=== PATIENT | female | born 1935 | race Caucasian/White ===

== ENCOUNTER 2016-04-02 09:06 | Inpatient (IN) | payer MEDICARE, OTHER ==
[2016-04-02 09:13] VITALS: BMI 36.8
[2016-04-02 09:29] LABS: AUTOMATED BASOPHIL 0.6 % (0-2); AUTOMATED EOSINOPHIL 1.1 % (0-5); AUTOMATED LYMPH 22.3 % (17-44); AUTOMATED MONOCYTE 12.1 % (3-10); AUTOMATED NEUTROPHIL 63.9 % (45-76); MPV 9.7 fL (7.4-10.4)
--- NOTE | 2016-04-02 09:38 | EDPRACDOC ---
- General Information Chief Complaint: Generalized Weakness Stated Complaint: FALL Time Seen by Provider: 04/02/16 09:07 Information Source: Patient Home Medications: Home Medications Albuterol Sulfate [Ventolin Hfa] 1 - 2 puff INH Q4H PRN 09/06/12 Cholecalciferol [Vitamin D3 (cholecalciferol)] 1,000 unit PO DAILY 09/06/12 Duloxetine [Cymbalta] 30 mg PO DAILY 09/06/12 Esomeprazole Mag Trihydrate [Nexium] 40 mg PO BID 09/06/12 Ezetimibe [Zetia] 10 mg PO DAILY 09/06/12 Levothyroxine [Synthroid, Levoxyl] 175 mcg PO DAILY 09/06/12 Mometasone Furoate [Nasonex] 17 gm NS DAILY PRN 09/06/12 Telmisartan [Micardis] 80 mg PO DAILY 09/06/12 Calcium Carbonate [Calcium] 600 mg PO DAILY 09/15/14 Gabapentin [Neurontin] 400 mg PO BID 09/15/14 Hydrocodone Bit/Acetaminophen [[place] 5-325 Tablet] 1 - 2 tabs PO Q6H PRN Rosuvastatin [Crestor] 10 mg PO HS 09/15/14 Aspirin (Enteric Coated) [Halfprin] 81 mg PO DAILY 03/15/15 Clopidogrel Bisulfate [Plavix] 75 mg PO DAILY 03/15/15 Estradiol [Estrace] 2 gm PV .3 X PER WEEK 03/15/15 Fexofenadine HCl [Dionne] 180 mg PO DAILY 03/15/15 Furosemide [Lasix] 20 mg PO DAILY PRN 03/15/15 Glimepiride [Amaryl] 2 mg PO DAILY 03/15/15 Liraglutide [Victoza 18 mg/3 ml Pen] 1.8 mg SQ DAILY 03/15/15 Melatonin 10 mg PO QHS 03/15/15 Nitrofurantoin [Macrobid] 100 mg PO DAILY 04/02/16 Polyethylene Glycol 3350 [Miralax] 17 gm PO DAILY PRN 04/02/16 Allergies/Adverse Reactions: Allergies Allergy/AdvReac Type Severity Reaction Status Date / Time midazolam HCl [From Versed] Allergy Severe Confusion Verified 04/02/16 09:10 ethacrynic acid Allergy Mild Difficulty Verified 04/02/16 09:10 [From Edecrin] Breathing morphine Allergy Mild Unknown/See Verified 04/02/16 09:10 Comments Sulfa (Sulfonamide Allergy Mild Unknown/See Verified 04/02/16 09:10 Antibiotics) Comments [Sulfa(Sulfonamide Antibiotics)] adhesive tape Allergy Unknown/See Verified 04/02/16 09:10 Comments - History of Present Illness Onset: this am HPI: PT PRESENTS AFTER FALL CAUSED BY WEAKNESS IN HER LEGS WITH ATTEMPTED AMBULATION THIS AM. SHE REPORTS THAT SHE HIT THE RIGHT FOREHEAD WHEN SHE FELL. DENIES LOC. ED Past Medical History - Patient Medical History Neurological History: Reports: Cerebrovascular Accident Cardiac History: Reports: Hypertension, Hypercholesterolemia Respiratory History: Reports: Asthma GI/ History: Reports: Renal Disease, Urinary Tract Infection Musculoskeletal History: Reports: Osteoarthritis (lumbar) Psychological History: Reports: Anxiety. Denies: Depression Systemic History: Reports: Diabetes, Hyperthyroidism, Hypothyroidism. Denies: Cancer Surgical History: Reports: Hysterectomy (partial), Tonsillectomy/Adnoidectomy - Family Medical History Reports: Diabetes (father), Cancer (mother colon), Cardiac Disorders (parents). Denies: Hypertension, Stroke - Social Medical History Smoking Status: Former smoker Lives With: Alone Lives In: Home EDM Review of Systems - Review of Systems ROS Negative Except as Marked: Yes All systems reviewed and were negative except as marked Constitutional: Weakness. negative: Fever Respiratory: negative: Shortness of Breath Cardiovascular: negative: Chest Pain Gastrointestinal: negative: Nausea, Pain, Vomiting Genitourinary: negative: Dysuria Integumentary: Bruising (RIGHT FOREHEAD) - Physical Exam Constitutional: Alert Oriented to: Time, Person, Place Last recorded Vital Signs: Last Vital Signs Temp 98.3 F 04/02/16 09:11 Pulse 81 04/02/16 09:28 Resp 22 04/02/16 09:28 BP 229/95 H 04/02/16 09:28 Pulse Ox 91 04/02/16 09:28 Oxygen Pulse Oxygen Saturation 91 O2 Device Room Air Oxygen Flow Rate Fraction of Inspired Oxygen ( FIO2) - HEENT Head: Swelling (RIGHT FOREHEAD CONTUSION WITH SLIGHT ECCHYMOSIS.). negative: Deformity, Laceration Eye Exam: negative: Conjunctival Injection, Pale Conjunctiva Oropharynx: negative: Membranes Dry Nose: negative: Congestion, Discharge Neck: negative: Limited ROM - Respiratory/Cardiovascular Respiratory: Normal - CTA. negative: Accessory Muscle Use, Diminished, Tachypnea Cardiovascular: Tachycardia. negative: Bradycardia, Irregular - GI Auscultation: Normal Palpation: Normal Tenderness: Non tender - Musculoskeletal Extremities: Pedal Pulse (PALPABLE), Radial Pulse (PALPABLE). negative: Calf Tenderness, Pedal Edema - Integumentary Skin: Warm, Dry. negative: Rash - Neurologic Memory Impaired: Normal Motor Function: Normal Mood Description: Anxious, Appropriate Thought: Coherent Perception: Normal - Re-evaluation Re-evaluation 1 Re-evaluation Time: 12:57 PT HAS REPEATED QUESTIONS DURING HER VISIT, IS HAVING PERSISTENT HEADACHE, AND MAINTAINS LEG INSTABILITY. CONCERN FOR HYPERTENSIVE ENCEPHALOPATHY. - Results 04/02/16 09:15 04/02/16 09:15 WBC 7.1 xk/uL (3.8-10.8) 04/02/16 09:15 RBC 4.35 xM/uL (4.20-5.40) 04/02/16 09:15 Hgb 13.1 g/dL (12.0-16.0) 04/02/16 09:15 Hct 39.2 % (36-47) 04/02/16 09:15 MCV 90 fL (81-99) 04/02/16 09:15 MCH 30.1 pg (27-32) 04/02/16 09:15 MCHC 33.5 g/dl (33-36) 04/02/16 09:15 RDW 16.8 % (11.5-14.5) H 04/02/16 09:15 Plt Count 178 xk/uL (130-400) 04/02/16 09:15 MPV 9.7 fL (7.4-10.4) 04/02/16 09:15 Neut % (Auto) 63.9 % (45-76) 04/02/16 09:15 Lymph % (Auto) 22.3 % (17-44) 04/02/16 09:15 Wolfe % (Auto) 12.1 % (3-10) H 04/02/16 09:15 Eos % (Auto) 1.1 % (0-5) 04/02/16 09:15 Baso % (Auto) 0.6 % (0-2) 04/02/16 09:15 Absolute Neuts (auto) 4.47 xk/uL (1.7-8.2) 04/02/16 09:15 Absolute Lymphs (auto) 1.56 xk/uL (0.65-4.75) 04/02/16 09:15 Lab Results 04/02/16 09:15 WBC 7.1 RBC 4.35 Hgb 13.1 Hct 39.2 MCV 90 MCH 30.1 MCHC 33.5 RDW 16.8 H Plt Count 178 MPV 9.7 Neut % (Auto) 63.9 Lymph % (Auto) 22.3 Wolfe % (Auto) 12.1 H Eos % (Auto) 1.1 Baso % (Auto) 0.6 Absolute Neuts (auto) 4.47 Absolute Lymphs (auto) 1.56 - EKG EKG #1 EKG Time: 09:24 -: Yes EKG interpreted by me Rate: bpm: 84 [place]: LAD Rhythm: NSR, PVCs Block: IVCD ST: Nonsp - Departure Yes I personally saw and evaluated the patient. Disposition: Admit IP To This Hospital Condition: Stable Final Diagnosis: Hypertensive encephalopathy Instructions: Weakness (General) Decision to Admit Time: 13:02 Decision to admit date: 04/02/16 Decision to admit: from ED
[2016-04-02 09:39] LABS: BLOOD UREA NITROGEN 19 MG/DL (7-17); CALCIUM 9.4 MG/DL (8.4-10.2); CALCULATED OSMOLALITY 280 MOs/Kg (270-290); CHLORIDE 102 mEq/L (98-107); CPK TOTAL WITH POSSIBLE MB 42 IU/L (30-134); GLUCOSE 180 MG/DL (70-99); SODIUM LEVEL 142 mEq/L (137-146); TOTAL PROTEIN 7.6 G/DL (6.3-8.2)
[2016-04-02 09:41] LABS: PARTIAL THROMB. TIME 20.3 SEC (22-35); PT-INR 0.9
[2016-04-02 10:05] LABS: LEUKOCYTES/URINE NEG (NEGATIVE); NITRITE/URINE NEG (NEGATIVE); RBC/URINE 0-2 (0-5); URINE OCCULT BLOOD NEG (NEG/TRACE); WBC/URINE 0-2 (0-5)
--- NOTE | 2016-04-02 10:12 | DIRPT ---
CLINICAL DATA: Weakness EXAM: PORTABLE CHEST - 1 VIEW COMPARISON: 01/15/2015 FINDINGS: Cardiac shadow is stable. Lungs are clear bilaterally. No acute bony abnormality is seen. Chronic erosion of the distal right clavicle is noted. IMPRESSION: No active disease. Electronically Signed By: Rony Bob M.D. On: 04/02/2016 10:09
--- NOTE | 2016-04-02 10:51 | DIRPT ---
CLINICAL DATA: Recent fall with frontal head injury EXAM: CT HEAD WITHOUT CONTRAST TECHNIQUE: Contiguous axial images were obtained from the base of the skull through the vertex without intravenous contrast. COMPARISON: None. FINDINGS: Bony calvarium is intact. No findings to suggest acute hemorrhage, acute infarction or space-occupying mass lesion are noted. IMPRESSION: No acute intracranial abnormality noted. Electronically Signed By: Rony Bob M.D. On: 04/02/2016 10:49
[2016-04-02] MEDS ORDERED: LABETALOL 20 MG/4 ML SYRINGE IV ONE (11:02)
[2016-04-02] MEDS ORDERED: TELMISARTAN 40 MG TAB PO ONE (12:00)
[2016-04-02] MEDS ORDERED: hydrALAZINE 20 MG/ML VIAL IV ONE (12:56)
[2016-04-02] MEDS ORDERED: FUROSEMIDE 20 MG TAB PO PRN (13:13)
[2016-04-02] MEDS ORDERED: ALBUTEROL 6.7 GM MDI INH PRN (13:13)
[2016-04-02] MEDS ORDERED: MOMETASONE FUROATE 17 GM NS PRN (13:13)
[2016-04-02] MEDS ORDERED: PEG-ELECTROLYTE 17 GM PACK PO PRN (13:13)
[2016-04-02] MEDS ORDERED: ESTRADIOL PV SCH (13:15)
[2016-04-02] MEDS ORDERED: ONDANSETRON HCL 4 MG/2 ML VIAL IV PRN (13:19)
[2016-04-02] MEDS ORDERED: ACETAMINOPHEN 325 MG/TAB TABLET PO PRN (13:19)
[2016-04-02] MEDS ORDERED: GLUCAGON 1 MG VIAL SQ PRN (13:21)
[2016-04-02] MEDS ORDERED: DEXTROSE 25 GM/50 ML PFS IV PRN (13:21)
[2016-04-02] MEDS ORDERED: GLUCOSE (ORAL GEL) 15 GM TUBE PO PRN (13:21)
[2016-04-02] MEDS ORDERED: FLUTICASONE PROPIONATE 16 GM BOT NAS PRN (13:51)
[2016-04-02] MEDS ORDERED: FLUTICASONE PROPIONATE 16 GM BOT NAS SCH (13:52)
--- NOTE | 2016-04-02 13:58 | HISTPHYS ---
- Chief Complaint Hypertensive urgency - History of Present Illness This is a pleasant 80-year-old female with a history of hypertension and diabetes who was being admitted to the hospital today due to hypertensive urgency which was discovered after she had a mechanical fall at home this morning. The patient tells me that she normally ambulates with a walker, she lives independently in an elderly living community. This morning when she woke up, she sat at the edge of the bed, and when she went up to stand at the edge of the bed, she fell and hit her forehead on the night stand. She denies any dizziness, vertigo, nausea, vomiting, fevers, chills, syncope or loss of consciousness. She remembers the whole event, has never had seizures. She fell at home this last summer, in a similar situation. When her blood pressure was checked, was found to be in the 240s systolic. She has been given IV labetalol, as well as hydralazine here in the emergency department her blood pressure still elevated at over 220 systolic. She takes an ARB at home, she tells me that a few months ago her primary care physician discontinued her home amlodipine because her blood pressure was normal. She intermittently takes an oral antibiotic due to frequent urinary tract infections, for the last few days she has been urinating quite frequently and feels like she might have a urinary tract infection. - Medical History Cardiac History: Reports: Hypertension, Hypercholesterolemia Respiratory History: Reports: Asthma GI/ History: Reports: Renal Disease, Urinary Tract Infection Musculoskeletal History: Reports: Osteoarthritis (lumbar) Systemic History: Reports: Diabetes, Hyperthyroidism, Hypothyroidism. Denies: Cancer Neurological History: Reports: Cerebrovascular Accident Psychological History: Reports: Anxiety. Denies: Depression - Surgical History Reports: Hysterectomy (partial), Tonsillectomy/Adnoidectomy - Medictions/Allergies Allergies midazolam HCl [From Versed] Allergy (Severe, Verified 04/02/16 09:10) Confusion ethacrynic acid [From Edecrin] Allergy (Mild, Verified 04/02/16 09:10) Difficulty Breathing UNKNOWN morphine Allergy (Mild, Verified 04/02/16 09:10) Unknown/See Comments MOUTH SWELLING Sulfa (Sulfonamide Antibiotics) [Sulfa(Sulfonamide Antibiotics)] Allergy (Mild, Verified 04/02/16 09:10) Unknown/See Comments SOB adhesive tape Allergy (Verified 04/02/16 09:10) Unknown/See Comments SKIN IRRITATION Home Medications Albuterol Sulfate [Ventolin Hfa] 1 - 2 puff INH Q4H PRN 09/06/12 Cholecalciferol [Vitamin D3 (cholecalciferol)] 1,000 unit PO DAILY 09/06/12 Duloxetine [Cymbalta] 30 mg PO DAILY 09/06/12 Esomeprazole Mag Trihydrate [Nexium] 40 mg PO BID 09/06/12 Ezetimibe [Zetia] 10 mg PO DAILY 09/06/12 Levothyroxine [Synthroid, Levoxyl] 175 mcg PO DAILY 09/06/12 Mometasone Furoate [Nasonex] 17 gm NS DAILY PRN 09/06/12 Telmisartan [Micardis] 80 mg PO DAILY 09/06/12 Calcium Carbonate [Calcium] 600 mg PO DAILY 09/15/14 Gabapentin [Neurontin] 400 mg PO BID 09/15/14 Hydrocodone Bit/Acetaminophen [[place] 5-325 Tablet] 1 - 2 tabs PO Q6H PRN Rosuvastatin [Crestor] 10 mg PO HS 09/15/14 Aspirin (Enteric Coated) [Halfprin] 81 mg PO DAILY 03/15/15 Clopidogrel Bisulfate [Plavix] 75 mg PO DAILY 03/15/15 Estradiol [Estrace] 2 gm PV .3 X PER WEEK 03/15/15 Fexofenadine HCl [Dionne] 180 mg PO DAILY 03/15/15 Furosemide [Lasix] 20 mg PO DAILY PRN 03/15/15 Glimepiride [Amaryl] 2 mg PO DAILY 03/15/15 Liraglutide [Victoza 18 mg/3 ml Pen] 1.8 mg SQ DAILY 03/15/15 Melatonin 10 mg PO QHS 03/15/15 Nitrofurantoin [Macrobid] 100 mg PO DAILY 04/02/16 Polyethylene Glycol 3350 [Miralax] 17 gm PO DAILY PRN 04/02/16 - Family History Reports: Diabetes (father), Cancer (mother colon), Cardiac Disorders (parents). Denies: Hypertension, Stroke - Social History Smoking Status: Former smoker - Review of Systems Yes All systems reviewed and were negative except as marked (And as mentioned in the history of present illness above.) - Physical Exam Vital Signs: Initial Vitals Temperature 98.3 F 04/02/16 09:11 Pulse Rate 103 04/02/16 09:11 Respiratory Rate 18 04/02/16 09:11 Pulse Oxygen Saturation 93 04/02/16 09:11 Constitutional: Alert (Awake, Fully oriented, well appearing. No apparent distress) Oriented to: Time, Person, Place Exam: Elderly female appearing her stated age. She appears comfortable, is alert and oriented, and a good historian. - HEENT Head: Normal (normocephalic,atraumatic, trachea midline) Eye: Normal (EOMI, Sclera white) Oropharynx: Normal (moist) Nose: No Symptoms Reported (without discharge or bleeding) Respiratory: Normal - CTA (Clear to auscultation bilaterally, no wheezing,rales or rhonchi. No use of accessory muscles) Cardiovascular: Normal (RRR, no murmurs, rubs or gallops) - GI Palpation: Normal (soft, non distended and nontender) - Musculoskeletal Extremities: Normal (normal tone, no cyanosis or edema) - Integumentary Skin: Normal (no rashes or lesions) - Neurologic Cranial Nerve: Normal (CN II-XII intact) Mood Description: Normal (Fully oriented and appropiate affect) - Focused CV Perfusion Exam Vital Signs: Last Vital Signs Temp 98.3 F 04/02/16 09:11 Pulse 76 04/02/16 13:53 Resp 20 04/02/16 13:53 BP 218/88 H 04/02/16 13:53 Pulse Ox 93 04/02/16 13:53 - Lab Results Laboratory Tests 04/02/16 04/02/16 04/02/16 09:15 09:15 09:15 WBC 7.1 Hgb 13.1 INR 0.9 Potassium 3.9 BUN 19 H Creatinine 0.90 Lactic Acid AST 25 ALT 32 Troponin I [id number] Pept 04/02/16 04/02/16 04/02/16 09:15 10:15 12:10 WBC Hgb INR Potassium BUN Creatinine Lactic Acid 2.1 AST ALT Troponin I < 0.01 [id number] Pept 1250 - Diagnostic Findings Chest x-ray and head CT done in the emergency department this morning are both unremarkable, without any acute process identified. - Assessment (1) Hypertensive encephalopathy I67.4 - HYPERTENSIVE ENCEPHALOPATHY Acute Reason for admission. Uncontrolled hypertension likely related to recent medication change, fall/ injury, possible UTI. Mentation and mental status are currently normal. Note head CT results above, unremarkable for any acute stroke or hemorrhage. Resume home Arb, add amlodipine 10 mg p.o. daily, as well as IV hydralazine 10 mg q.6 p.r.n. SBP over 170. (2) HTN (hypertension) I10 - ESSENTIAL (PRIMARY) HYPERTENSION Acute Resuming home medications. See above. (3) DMII (diabetes mellitus, type 2) E11.9 - TYPE 2 DIABETES MELLITUS WITHOUT COMPLICATIONS Acute Diabetic diet, continue home oral diabetes medications. Add q.a.c. and HS blood sugar checks, as well as sliding scale insulin. Will also check hemoglobin A1c and urine microalbumin. (4) Fall at home W19.XXXA - UNSPECIFIED FALL, INITIAL ENCOUNTER; Y92.099 - UNSP PLACE IN OTH NON- INSTITUTIONAL RESIDENCE PLACE Acute Does not sound like syncope, or seizure. No stroke seen on head CT. Physical therapy has been consulted. Case Care Discussed with: Patient, Nursing Staff Total Time: 49
[2016-04-02] MEDS ORDERED: LIRAGLUTIDE 18 MG/3ML (0.6 MG/0.1 ML) PEN SQ SCH (14:00)
[2016-04-02] MEDS ORDERED: AMLODIPINE 5 MG TAB ONE (14:41)
[2016-04-02] MEDS ORDERED: RISPERIDONE 1 MG TAB ONE (14:42)
[2016-04-02] MEDS: AMLODIPINE 10 MG TAB PO SCH (14:56)
[2016-04-02] MEDS: HYDROCODONE 5 MG/ACETAMIN 325 MG TAB PO PRN ×2 (15:04→20:38)
[2016-04-02] MEDS: REGULAR INSULIN 100 UNITS/ML - 3 ML VIAL SQ SCH ×2 (18:38→21:23)
[2016-04-02] MEDS: ENOXAPARIN 60 MG/0.6 ML PFS SQ SCH (18:41)
[2016-04-02] MEDS: PANTOPRAZOLE 40 MG TAB PO SCH (18:42)
[2016-04-02] MEDS: hydrALAZINE 20 MG/ML VIAL IV PRN (18:42)
[2016-04-02] MEDS: LIRAGLUTIDE 18 MG/3ML (0.6 MG/0.1 ML) PEN SQ SCH (19:05)
[2016-04-02] MEDS ORDERED: Vaccine Screening Complete SCH (20:00)
[2016-04-02] MEDS ORDERED: MELATONIN 10 MG PO SCH (21:00)
[2016-04-02] MEDS ORDERED: Non-Formulary Medication ITEM (Esomeprazole Mag Trihydrate [Nexium] 40 MG) PO SCH (21:00)
[2016-04-02] MEDS: CARVEDILOL 3.125 MG TAB PO SCH (21:22)
[2016-04-02] MEDS: ROSUVASTATIN 10 MG TAB PO SCH (21:22)
[2016-04-02] MEDS: GABAPENTIN 400 MG CAP PO SCH (21:28)
[2016-04-02] MEDS ORDERED: CHAPSTICK LIP BALM ONE (21:33)
[2016-04-03] MEDS ORDERED: ARTIFICIAL TEARS OPH SOLN 15 ML OU PRN (00:04)
[2016-04-03] MEDS ORDERED: ARTIFICIAL TEARS OPH SOLN 15 ML OU SCH (00:12)
[2016-04-03] MEDS: TEMAZEPAM 15 MG CAP PO PRN ×2 (00:16→02:24)
[2016-04-03] MEDS: HYDROCODONE 5 MG/ACETAMIN 325 MG TAB PO PRN ×3 (02:20→21:04)
[2016-04-03 02:54] LABS: LEUKOCYTES/URINE NEG (NEGATIVE); NITRITE/URINE NEG (NEGATIVE); URINE OCCULT BLOOD NEG (NEG/TRACE)
[2016-04-03] MEDS: REGULAR INSULIN 100 UNITS/ML - 3 ML VIAL SQ SCH ×4 (05:59→20:56)
[2016-04-03] MEDS: PANTOPRAZOLE 40 MG TAB PO SCH ×2 (06:21→19:00)
[2016-04-03] MEDS: GLIMEPIRIDE 2 MG TAB PO SCH (06:21)
[2016-04-03 06:44] LABS: MPV 10.3 fL (7.4-10.4)
[2016-04-03 07:00] LABS: BLOOD UREA NITROGEN 14 MG/DL (7-17); CALCIUM 9.2 MG/DL (8.4-10.2); CALCULATED OSMOLALITY 275 MOs/Kg (270-290); CHLORIDE 103 mEq/L (98-107); GLUCOSE 148 MG/DL (70-99); SODIUM LEVEL 141 mEq/L (137-146)
[2016-04-03] MEDS ORDERED: LIRAGLUTIDE 18 MG/3ML (0.6 MG/0.1 ML) PEN SQ SCH (07:00)
[2016-04-03] MEDS ORDERED: LEVOTHYROXINE 175 MCG PO SCH (09:00)
[2016-04-03] MEDS ORDERED: TELMISARTAN 80 MG PO SCH (09:00)
--- NOTE | 2016-04-03 09:57 | GENMEDPROG ---
Chief Complaint: Hypertension, fall at home Subjective Note: No acute events overnight, the patient is comfortable but tells me that she had some urinary retention and frequent overflow incontinence overnight. This has been a problem for her in the past. Notes Reviewed: Yes Events from last night noted and discussed with Clinical Staff Current Medication List: Reviewed DVT Prophylaxis: Yes - Physical Examination Vital Signs and I&O: Last Vital Signs Temp 98.1 F 04/03/16 08:12 Pulse 87 04/03/16 08:12 Resp 20 04/03/16 08:12 BP 182/78 H 04/03/16 08:12 Pulse Ox 93 04/03/16 08:12 Oxygen Pulse Oxygen Saturation 93 O2 Device Room Air Oxygen Flow Rate Fraction of Inspired Oxygen ( FIO2) Intake & Output 04/01/16 04/02/16 04/03/16 04/04/16 06:59 06:59 06:59 06:59 Intake Total 360 Output Total 1300 Balance -940 General: Alert, Oriented x3, Cooperative, Mild distress Neck: Normal Trachea alignment, Normal inspection Respiratory: Normal - CTA (Clear to auscultation bilaterally, no wheezing,rales or rhonchi. No use of accessory muscles) Cardiovascular: Regular rate, No Gallops,Rubs/Murmurs GI: Normal bowel sounds, Soft, Non tender (non distended) Extremities/Musculoskeletal: Other (Normal Tone). negative: Edema, Cyanosis Skin: No rashes, No significant lesion Lab/DI/Studies Reviewed: Laboratory Tests 04/03/16 04/03/16 05:50 05:50 WBC 8.8 Hgb 12.5 Potassium 3.9 BUN 14 Creatinine 0.80 - Assessment (1) Hypertensive encephalopathy Acute I67.4 - HYPERTENSIVE ENCEPHALOPATHY Comment/Plan: Reason for admission. Uncontrolled hypertension likely related to recent medication change , fall/injury, possible UTI. Mentation and mental status are currently normal. Note head CT unremarkable for any acute stroke or hemorrhage. Resume home Arb, add amlodipine 10 mg p.o. daily, as well as IV hydralazine 10 mg q.6 p.r.n. SBP over 170. Blood pressure is improved today, slightly elevated this morning, but she has not received her amlodipine yet. (2) HTN (hypertension) Acute I10 - ESSENTIAL (PRIMARY) HYPERTENSION Comment/Plan: Resuming home medications. See above. (3) DMII (diabetes mellitus, type 2) Acute E11.9 - TYPE 2 DIABETES MELLITUS WITHOUT COMPLICATIONS Comment/Plan: Diabetic diet, continue home oral diabetes medications. Add q.a.c. and HS blood sugar checks, as well as sliding scale insulin. Will also check hemoglobin A1c and urine microalbumin. (4) Fall at home Acute W19.XXXA - UNSPECIFIED FALL, INITIAL ENCOUNTER; Y92.099 - UNSP PLACE IN OTH NON-INSTITUTIONAL RESIDENCE PLACE Comment/Plan: Does not sound like syncope, or seizure. No stroke seen on head CT. Physical therapy has been consulted and recommend subacute rehabilitation.
[2016-04-03] MEDS: NITROFURANTOIN 100 MG CAP PO SCH (10:10)
[2016-04-03] MEDS: DULOXETINE 30 MG CAP PO SCH (10:11)
[2016-04-03] MEDS: CARVEDILOL 3.125 MG TAB PO SCH ×2 (10:11→20:55)
[2016-04-03] MEDS: TELMISARTAN 40 MG TAB PO SCH (10:13)
[2016-04-03] MEDS: GABAPENTIN 400 MG CAP PO SCH ×2 (10:13→20:56)
[2016-04-03] MEDS: EZETIMIBE 10 MG TAB PO SCH (10:14)
[2016-04-03] MEDS: AMLODIPINE 10 MG TAB PO SCH (10:14)
[2016-04-03] MEDS: CLOPIDOGREL 75 MG TAB PO SCH (10:14)
[2016-04-03] MEDS: LEVOTHYROXINE 100 MCG, LEVOTHYROXINE 75 MCG PO SCH ×2 (10:14)
[2016-04-03] MEDS: FEXOFENADINE HCL 180 MG TAB PO SCH (10:17)
[2016-04-03] MEDS: hydrALAZINE 20 MG/ML VIAL IV PRN (11:21)
[2016-04-03] MEDS ORDERED: HYDROCODONE 5 MG/ACETAMIN 325 MG TAB PO ONE (12:20)
[2016-04-03] MEDS: ARTIFICIAL TEARS OPH SOLN 15 ML OU SCH ×2 (12:28→20:54)
[2016-04-03] MEDS: CALCIUM CARBONATE 500 MG TAB PO SCH (12:29)
[2016-04-03] MEDS: CHOLECALCIFEROL 1000 UNITS TAB PO SCH (12:29)
[2016-04-03] MEDS: ENOXAPARIN 60 MG/0.6 ML PFS SQ SCH (18:59)
[2016-04-03] MEDS: LIRAGLUTIDE 18 MG/3ML (0.6 MG/0.1 ML) PEN SQ SCH (18:59)
[2016-04-03] MEDS: ROSUVASTATIN 10 MG TAB PO SCH (20:55)
[2016-04-04] MEDS: TEMAZEPAM 15 MG CAP PO PRN ×2 (00:03→21:13)
[2016-04-04 03:23] LABS: MPV 10.2 fL (7.4-10.4)
[2016-04-04 03:31] LABS: BLOOD UREA NITROGEN 18 MG/DL (7-17); CALCIUM 9.2 MG/DL (8.4-10.2); CALCULATED OSMOLALITY 268 MOs/Kg (270-290); CHLORIDE 100 mEq/L (98-107); GLUCOSE 141 MG/DL (70-99); SODIUM LEVEL 137 mEq/L (137-146)
[2016-04-04] MEDS: REGULAR INSULIN 100 UNITS/ML - 3 ML VIAL SQ SCH ×4 (05:16→21:14)
[2016-04-04] MEDS: PANTOPRAZOLE 40 MG TAB PO SCH ×2 (05:16→16:41)
[2016-04-04] MEDS: CHOLECALCIFEROL 1000 UNITS TAB PO SCH (08:51)
[2016-04-04] MEDS: GABAPENTIN 400 MG CAP PO SCH ×2 (08:51→21:14)
[2016-04-04] MEDS: CLOPIDOGREL 75 MG TAB PO SCH (08:51)
[2016-04-04] MEDS: CALCIUM CARBONATE 500 MG TAB PO SCH (08:51)
[2016-04-04] MEDS: EZETIMIBE 10 MG TAB PO SCH (08:51)
[2016-04-04] MEDS: TELMISARTAN 40 MG TAB PO SCH (08:52)
[2016-04-04] MEDS: AMLODIPINE 10 MG TAB PO SCH (08:52)
[2016-04-04] MEDS: LEVOTHYROXINE 100 MCG, LEVOTHYROXINE 75 MCG PO SCH ×2 (08:52)
[2016-04-04] MEDS: GLIMEPIRIDE 2 MG TAB PO SCH (08:53)
[2016-04-04] MEDS: CARVEDILOL 3.125 MG TAB PO SCH ×2 (08:53→21:14)
[2016-04-04] MEDS: NITROFURANTOIN 100 MG CAP PO SCH (08:53)
[2016-04-04] MEDS: DULOXETINE 30 MG CAP PO SCH (08:53)
[2016-04-04] MEDS: ARTIFICIAL TEARS OPH SOLN 15 ML OU SCH ×2 (08:53→21:13)
[2016-04-04] MEDS: FEXOFENADINE HCL 180 MG TAB PO SCH (08:53)
[2016-04-04] MEDS: HYDROCODONE 5 MG/ACETAMIN 325 MG TAB PO PRN ×2 (09:00→21:13)
--- NOTE | 2016-04-04 09:16 | GENMEDPROG ---
Chief Complaint: HTN, NELLY Currently: Reports: Abdominal Pain DVT Prophylaxis: Yes - Physical Examination Vital Signs and I&O: Last Vital Signs Temp 97.6 F 04/04/16 08:54 Pulse 73 04/04/16 08:54 Resp 20 04/04/16 08:54 BP 141/64 04/04/16 08:54 Pulse Ox 96 04/04/16 08:54 Oxygen Pulse Oxygen Saturation 96 O2 Device Room Air Oxygen Flow Rate Fraction of Inspired Oxygen ( FIO2) Intake & Output 04/01/16 04/02/16 04/03/16 04/04/16 23:59 23:59 23:59 23:59 Intake Total 360 1200 854 Output Total 300 1000 Balance 60 200 854 General: Alert, Oriented x3, Cooperative, Mild distress HEENT: PERRLA, EOMI, Anicteric Sclera Neck: Normal Trachea alignment, Normal inspection Lymphatics: Normal Respiratory: Normal - CTA (Clear to auscultation bilaterally, no wheezing,rales or rhonchi. No use of accessory muscles) Cardiovascular: Regular rate, No Gallops,Rubs/Murmurs GI: Normal bowel sounds, Soft, No masses, Tenderness (non distended, LLQ pain) Extremities/Musculoskeletal: FROM, Other (Normal Tone). negative: Edema, Cyanosis Skin: No rashes, No significant lesion Neurological: Normal speech, Strength at 5/5 X4 ext, Normal tone, Cranial nerves 3-12 NL Psych/Mental Status: Appropriate, Normal Affect, Cooperative Lab/DI/Studies Reviewed: Laboratory Tests 04/04/16 04/04/16 04/04/16 03:02 03:02 05:16 WBC 7.3 Hgb 12.4 Hct 36.7 Plt Count 177 Sodium 137 Potassium 4.4 Chloride 100 Carbon Dioxide 29 Anion Gap 12 BUN 18 H Creatinine 0.90 Estimated GFR (MDRD) > 60 Glucose 141 H POC Capillary Glucose 135 H Calculated Osmolality 268 L Calcium 9.2 04/04/16 04/04/16 04/04/16 11:43 16:50 20:51 WBC Hgb Hct Plt Count Sodium Potassium Chloride Carbon Dioxide Anion Gap BUN Creatinine Estimated GFR (MDRD) Glucose POC Capillary Glucose 147 H 142 H 209 H Calculated Osmolality Calcium - Assessment (1) Hypertensive encephalopathy Resolved I67.4 - HYPERTENSIVE ENCEPHALOPATHY Comment/Plan: Reason for admission. Uncontrolled hypertension likely related to recent medication change , fall/injury, but UTI has been ruled out. Mentation and mental status are currently normal. Note head CT unremarkable for any acute stroke or hemorrhage. Resume home ARB, add amlodipine 10 mg p.o. daily, as well as IV hydralazine 10 mg q.6 p.r.n. SBP over 170. Blood pressure is improved . (2) Fall at home Acute W19.XXXA - UNSPECIFIED FALL, INITIAL ENCOUNTER; Y92.099 - UNSP PLACE IN OTH NON-INSTITUTIONAL RESIDENCE PLACE Qualifiers: Encounter type: initial encounter Qualified Code(s): W19.XXXA - Unspecified fall, initial encounter; Y92.099 - Unspecified place in other non- institutional residence as the place of occurrence of the external cause Comment/Plan: Does not sound like syncope, or seizure. No stroke seen on head CT. Physical therapy has been consulted and recommends subacute rehabilitation. Patient would [facility] to go to [facility]. (3) HTN (hypertension) Acute I10 - ESSENTIAL (PRIMARY) HYPERTENSION Comment/Plan: Resuming home medications. See above. (4) DMII (diabetes mellitus, type 2) Acute E11.9 - TYPE 2 DIABETES MELLITUS WITHOUT COMPLICATIONS Qualifiers: Diabetes mellitus complication status: with neurologic complications Diabetes mellitus complication detail: with polyneuropathy Diabetes mellitus moth exterminator insulin use: without moth exterminator use Qualified Code(s): E11.42 - Type 2 diabetes mellitus with diabetic polyneuropathy Comment/Plan: Diabetic diet, continue home oral diabetes medications. Add q.a.c. and HS blood sugar checks, as well as sliding scale insulin. Hg A1c= 8.5 and urine microalbumin=29.3. (5) Abdominal pain, LLQ Acute R10.32 - LEFT LOWER QUADRANT PAIN Comment/Plan: Nonspecific. She did have some urinary retention. No evidence of UTI at this time.
[2016-04-04] MEDS: ENOXAPARIN 60 MG/0.6 ML PFS SQ SCH (16:41)
[2016-04-04] MEDS: LIRAGLUTIDE 18 MG/3ML (0.6 MG/0.1 ML) PEN SQ SCH (16:51)
[2016-04-04] MEDS: ROSUVASTATIN 10 MG TAB PO SCH (21:14)
[2016-04-05] MEDS: HYDROCODONE 5 MG/ACETAMIN 325 MG TAB PO PRN (02:51)
[2016-04-05 04:10] LABS: MPV 10.2 fL (7.4-10.4)
[2016-04-05 04:21] LABS: BLOOD UREA NITROGEN 24 MG/DL (7-17); CALCIUM 8.9 MG/DL (8.4-10.2); CALCULATED OSMOLALITY 265 MOs/Kg (270-290); CHLORIDE 98 mEq/L (98-107); GLUCOSE 191 MG/DL (70-99); SODIUM LEVEL 133 mEq/L (137-146)
[2016-04-05] MEDS: GLIMEPIRIDE 2 MG TAB PO SCH (06:33)
[2016-04-05] MEDS: REGULAR INSULIN 100 UNITS/ML - 3 ML VIAL SQ SCH ×4 (06:33→21:56)
[2016-04-05] MEDS: PANTOPRAZOLE 40 MG TAB PO SCH ×2 (06:33→17:25)
[2016-04-05] MEDS: CALCIUM CARBONATE 500 MG TAB PO SCH (08:47)
[2016-04-05] MEDS: LEVOTHYROXINE 100 MCG, LEVOTHYROXINE 75 MCG PO SCH ×2 (08:47)
[2016-04-05] MEDS: CHOLECALCIFEROL 1000 UNITS TAB PO SCH (08:47)
[2016-04-05] MEDS: AMLODIPINE 10 MG TAB PO SCH (08:48)
[2016-04-05] MEDS: NITROFURANTOIN 100 MG CAP PO SCH (08:48)
[2016-04-05] MEDS: TELMISARTAN 40 MG TAB PO SCH (08:48)
[2016-04-05] MEDS: ARTIFICIAL TEARS OPH SOLN 15 ML OU SCH ×2 (08:48→21:48)
[2016-04-05] MEDS: CLOPIDOGREL 75 MG TAB PO SCH (08:48)
[2016-04-05] MEDS: DULOXETINE 30 MG CAP PO SCH (08:48)
[2016-04-05] MEDS: EZETIMIBE 10 MG TAB PO SCH (08:48)
[2016-04-05] MEDS: CARVEDILOL 3.125 MG TAB PO SCH ×2 (08:48→21:46)
[2016-04-05] MEDS: GABAPENTIN 400 MG CAP PO SCH ×2 (08:48→21:46)
[2016-04-05] MEDS: FEXOFENADINE HCL 180 MG TAB PO SCH (08:48)
--- NOTE | 2016-04-05 11:29 | GENMEDPROG ---
Currently: Reports: Abdominal Pain DVT Prophylaxis: Yes - Physical Examination Vital Signs and I&O: Last Vital Signs Temp 97.9 F 04/05/16 08:18 Pulse 88 04/05/16 08:18 Resp 18 04/05/16 08:18 BP 131/62 04/05/16 08:18 Pulse Ox 95 04/05/16 08:18 Oxygen Pulse Oxygen Saturation 95 O2 Device Room Air Oxygen Flow Rate Fraction of Inspired Oxygen ( FIO2) Intake & Output 04/02/16 04/03/16 04/04/16 04/05/16 23:59 23:59 23:59 23:59 Intake Total 360 1200 1334 360 Output Total 300 1000 Balance 60 200 1334 360 Patient's weight 122.833 kg General: Alert, Oriented x3, Cooperative, Mild distress HEENT: PERRLA, EOMI, Anicteric Sclera Neck: Normal Trachea alignment, Normal inspection Lymphatics: Normal Respiratory: Normal - CTA (Clear to auscultation bilaterally, no wheezing,rales or rhonchi. No use of accessory muscles) Cardiovascular: Regular rate, No Gallops,Rubs/Murmurs GI: Normal bowel sounds, Soft, No masses, Tenderness (non distended, LLQ pain) Extremities/Musculoskeletal: FROM, Other (Normal Tone). negative: Edema, Cyanosis Skin: No rashes, No significant lesion Neurological: Normal speech, Strength at 5/5 X4 ext, Normal tone, Cranial nerves 3-12 NL Psych/Mental Status: Appropriate, Normal Affect, Cooperative Lab/DI/Studies Reviewed: Laboratory Tests 04/05/16 04/05/16 04/05/16 03:55 03:55 05:51 WBC 7.9 Hgb 11.9 L Hct 35.6 L Plt Count 175 Sodium 133 L Potassium 4.5 Chloride 98 Carbon Dioxide 26 Anion Gap 14 BUN 24 H Creatinine 1.00 Estimated GFR (MDRD) 53 L Glucose 191 H POC Capillary Glucose 168 H Calculated Osmolality 265 L Calcium 8.9 - Assessment (1) HTN (hypertension) Acute I10 - ESSENTIAL (PRIMARY) HYPERTENSION Comment/Plan: Resuming home medications. See above. (2) Fall at home Acute W19.XXXA - UNSPECIFIED FALL, INITIAL ENCOUNTER; Y92.099 - UNSP PLACE IN OTH NON-INSTITUTIONAL RESIDENCE PLACE Qualifiers: Encounter type: initial encounter Qualified Code(s): W19.XXXA - Unspecified fall, initial encounter; Y92.099 - Unspecified place in other non- institutional residence as the place of occurrence of the external cause Comment/Plan: Does not sound like syncope, or seizure. No stroke seen on head CT. Physical therapy has been consulted and recommends subacute rehabilitation. Patient would like to go to [facility]. (3) DMII (diabetes mellitus, type 2) Acute E11.9 - TYPE 2 DIABETES MELLITUS WITHOUT COMPLICATIONS Qualifiers: Diabetes mellitus complication status: with neurologic complications Diabetes mellitus complication detail: with polyneuropathy Diabetes mellitus equipment operator intermodal yard insulin use: without intermediate use Qualified Code(s): E11.42 - Type 2 diabetes mellitus with diabetic polyneuropathy Comment/Plan: Diabetic diet, continue home oral diabetes medications. Add q.a.c. and HS blood sugar checks, as well as sliding scale insulin. Hg A1c= 8.5 and urine microalbumin=29.3. (4) Abdominal pain, LLQ Acute R10.32 - LEFT LOWER QUADRANT PAIN Comment/Plan: Nonspecific. Better today. She did have some urinary retention, but is voiding better now. No evidence of UTI at this time. (5) Hypertensive encephalopathy Resolved I67.4 - HYPERTENSIVE ENCEPHALOPATHY Comment/Plan: Reason for admission. Uncontrolled hypertension likely related to recent medication change , fall/injury, but UTI has been ruled out. Mentation and mental status are currently normal. Note head CT unremarkable for any acute stroke or hemorrhage. Resume home ARB, add amlodipine 10 mg p.o. daily, as well as IV hydralazine 10 mg q.6 p.r.n. SBP over 170. Blood pressure is improved .
[2016-04-05] MEDS: LIRAGLUTIDE 18 MG/3ML (0.6 MG/0.1 ML) PEN SQ SCH (17:22)
[2016-04-05] MEDS: ENOXAPARIN 60 MG/0.6 ML PFS SQ SCH (17:25)
[2016-04-05] MEDS: ROSUVASTATIN 10 MG TAB PO SCH (21:45)
[2016-04-05] MEDS: TEMAZEPAM 15 MG CAP PO PRN (21:55)
[2016-04-06] MEDS: HYDROCODONE 5 MG/ACETAMIN 325 MG TAB PO PRN (00:43)
[2016-04-06] MEDS: GLIMEPIRIDE 2 MG TAB PO SCH (06:51)
[2016-04-06] MEDS: PANTOPRAZOLE 40 MG TAB PO SCH (06:51)
[2016-04-06] MEDS: REGULAR INSULIN 100 UNITS/ML - 3 ML VIAL SQ SCH ×2 (06:52→11:58)
[2016-04-06 07:22] LABS: MPV 10.1 fL (7.4-10.4)
[2016-04-06 07:45] LABS: BLOOD UREA NITROGEN 21 MG/DL (7-17); CALCIUM 8.9 MG/DL (8.4-10.2); CALCULATED OSMOLALITY 264 MOs/Kg (270-290); CHLORIDE 100 mEq/L (98-107); GLUCOSE 152 MG/DL (70-99); SODIUM LEVEL 134 mEq/L (137-146)
[2016-04-06] MEDS: CALCIUM CARBONATE 500 MG TAB PO SCH (08:40)
[2016-04-06] MEDS: GABAPENTIN 400 MG CAP PO SCH (08:41)
[2016-04-06] MEDS: DULOXETINE 30 MG CAP PO SCH (08:41)
[2016-04-06] MEDS: TELMISARTAN 40 MG TAB PO SCH (08:41)
[2016-04-06] MEDS: CHOLECALCIFEROL 1000 UNITS TAB PO SCH (08:41)
[2016-04-06] MEDS: CARVEDILOL 3.125 MG TAB PO SCH (08:41)
[2016-04-06] MEDS: LEVOTHYROXINE 100 MCG, LEVOTHYROXINE 75 MCG PO SCH ×2 (08:41)
[2016-04-06] MEDS: AMLODIPINE 10 MG TAB PO SCH (08:41)
[2016-04-06] MEDS: NITROFURANTOIN 100 MG CAP PO SCH (08:41)
[2016-04-06] MEDS: EZETIMIBE 10 MG TAB PO SCH (08:41)
[2016-04-06] MEDS: FEXOFENADINE HCL 180 MG TAB PO SCH (08:41)
[2016-04-06] MEDS: CLOPIDOGREL 75 MG TAB PO SCH (08:42)
[2016-04-06] MEDS: ARTIFICIAL TEARS OPH SOLN 15 ML OU SCH (08:42)
[2016-04-06 09:54] VITALS: PULSE 74
--- NOTE | 2016-04-06 12:18 | PCM.DCS92 ---
- Final/Secondary Discharge Diagnosis (1) Hypertensive encephalopathy Resolved I67.4 - HYPERTENSIVE ENCEPHALOPATHY Present on Admission: Yes Comment: Reason for admission. Uncontrolled hypertension likely related to recent medication change, fall/injury, but UTI has been ruled out. Mentation and mental status are currently normal. Note head CT unremarkable for any acute stroke or hemorrhage. Resume home ARB, add amlodipine 10 mg p.o. daily, as well as IV hydralazine 10 mg q.6 p.r.n. SBP over 170. Blood pressure is improved . (2) HTN (hypertension) Acute I10 - ESSENTIAL (PRIMARY) HYPERTENSION Present on Admission: Yes essential hypertension I10 - Essential (primary) hypertension Comment: Resuming home medications. See above. (3) Fall at home Acute W19.XXXA - UNSPECIFIED FALL, INITIAL ENCOUNTER; Y92.099 - UNSP PLACE IN OTH NON-INSTITUTIONAL RESIDENCE PLACE Present on Admission: Yes initial encounter W19.XXXA - Unspecified fall, initial encounter; Y92.099 - Unspecified place in other non-institutional residence as the place of occurrence of the external cause Comment: Does not sound like syncope, or seizure. No stroke seen on head CT. Physical therapy has been consulted and recommends subacute rehabilitation. Patient would like to go to [facility]'s SNF. (4) DMII (diabetes mellitus, type 2) Acute E11.9 - TYPE 2 DIABETES MELLITUS WITHOUT COMPLICATIONS Present on Admission: Yes with neurologic complications with polyneuropathy without termination clerk use E11.42 - Type 2 diabetes mellitus with diabetic polyneuropathy Comment: Diabetic diet, continue home oral diabetes medications. Add q.a.c. and HS blood sugar checks, as well as sliding scale insulin. Hg A1c= 8.5 and urine microalbumin=29.3. (5) Abdominal pain, LLQ Acute R10.32 - LEFT LOWER QUADRANT PAIN Present on Admission: Yes Comment: Nonspecific. Better today. She did have some urinary retention, but is voiding better now. No evidence of UTI at this time. Discharge Disposition: Long-Term Facility Discharge Condition: Improved Cognitive Discharge Status: Unimpaired Fuctional Discharge Status: Independent Physician Follow up/Referrals: Luis Alberto Villa MD [Primary Care Provider] - One Week New Prescriptions: Amlodipine [Norvasc] 10 mg PO DAILY #30 tab Carvedilol [Coreg] 3.125 mg PO BID #60 tablet Discharge Home Medication List Albuterol Sulfate [Ventolin Hfa] 1 - 2 puff INH Q4H PRN 09/06/12 [History Confirmed 04/02/16 Last Taken 04/01/16] Cholecalciferol [Vitamin D3 (cholecalciferol)] 1,000 unit PO DAILY 09/06/12 [ History Confirmed 04/02/16 Last Taken 04/01/16] Duloxetine [Cymbalta] 30 mg PO DAILY 09/06/12 [History Confirmed 04/02/16 Last Taken 04/01/16] Esomeprazole Mag Trihydrate [Nexium] 40 mg PO BID 09/06/12 [History Confirmed Last Taken 04/01/16] Ezetimibe [Zetia] 10 mg PO DAILY 09/06/12 [History Confirmed 04/02/16 Last Taken 04/01/16] Levothyroxine [Synthroid, Levoxyl] 175 mcg PO DAILY 09/06/12 [History Confirmed 04/02/16 Last Taken 04/01/16] Mometasone Furoate [Nasonex] 17 gm NS DAILY PRN 09/06/12 [History Confirmed Last Taken 09/14/14] Telmisartan [Micardis] 80 mg PO DAILY 09/06/12 [History Confirmed 04/02/16 Last Taken 04/01/16] Calcium Carbonate [Calcium] 600 mg PO DAILY 09/15/14 [History Confirmed Last Taken 04/01/16] Gabapentin [Neurontin] 400 mg PO BID 09/15/14 [History Confirmed 04/02/16 Last Taken 04/01/16] Hydrocodone Bit/Acetaminophen [[place] 5-325 Tablet] 1 - 2 tabs PO Q6H PRN [History Confirmed 04/02/16 Last Taken 03/15/15] Rosuvastatin [Crestor] 10 mg PO HS 09/15/14 [History Confirmed 04/02/16 Last Taken 04/01/16] Aspirin (Enteric Coated) [Halfprin] 81 mg PO DAILY 03/15/15 [History Confirmed 04/02/16 Last Taken 04/01/16] Clopidogrel Bisulfate [Plavix] 75 mg PO DAILY 03/15/15 [History Confirmed Last Taken 04/01/16] Estradiol [Estrace] 2 gm PV .3 X PER WEEK 03/15/15 [History Confirmed 04/02/16 Last Taken Unknown] Fexofenadine HCl [Dionne] 180 mg PO DAILY 03/15/15 [History Confirmed 04/02/16 Last Taken 04/01/16] Furosemide [Lasix] 20 mg PO DAILY PRN 03/15/15 [History Confirmed 04/02/16 Last Taken 03/14/15] Glimepiride [Amaryl] 2 mg PO DAILY 03/15/15 [History Confirmed 04/02/16 Last Taken 04/01/16] Liraglutide [Victoza 18 mg/3 ml Pen] 1.8 mg SQ DAILY 03/15/15 [History Confirmed 04/02/16 Last Taken 04/01/16] Nitrofurantoin [Macrobid] 100 mg PO DAILY 04/02/16 [History Confirmed 04/02/16 Last Taken 04/01/16] Polyethylene Glycol 3350 [Miralax] 17 gm PO DAILY PRN 04/02/16 [History Confirmed 04/02/16 Last Taken 04/01/16] Amlodipine [Norvasc] 10 mg PO DAILY #30 tab 04/06/16 [Rx Last Taken Unknown] Artificial Tears 2 drops OU BID #1 bottle 04/06/16 [Rx Last Taken Unknown] Artificial Tears 2 drops OU Q4H PRN #1 bottle 04/06/16 [Rx Last Taken Unknown] Carvedilol [Coreg] 3.125 mg PO BID #60 tablet 04/06/16 [Rx Last Taken Unknown] O2 Device: Room Air Oxygen to be used after Discharge: Continuous Diet at Discharge: As Tolerated Activity: No Restrictions Call Office For: Worsening Symptoms Discontinue use of:: Alcohol, All Types of Tobacco - DC Summary Notes Hospital Course Note:: Discharge summary on patient named RADHA VELASCO admitted to [facility] on 04/02/16 by Solo Denton MD. Date of discharge is []. This is a pleasant 80-year-old female with a history of hypertension and diabetes who was being admitted to the hospital today due to hypertensive urgency which was discovered after she had a mechanical fall at home this morning. The patient tells me that she normally ambulates with a walker, she lives independently in an elderly living community. This morning when she woke up, she sat at the edge of the bed, and when she went up to stand at the edge of the bed, she fell and hit her forehead on the night stand. She denies any dizziness, vertigo, nausea, vomiting, fevers, chills, syncope or loss of consciousness. She remembers the whole event, has never had seizures. She fell at home this last summer, in a similar situation. When her blood pressure was checked, was found to be in the 240s systolic. She has been given IV labetalol, as well as hydralazine here in the emergency department her blood pressure still elevated at over 220 systolic. She takes an ARB at home, she tells me that a few months ago her primary care physician discontinued her home amlodipine because her blood pressure was normal. She intermittently takes an oral antibiotic due to frequent urinary tract infections, for the last few days she has been urinating quite frequently and feels like she might have a urinary tract infection. She was evaluated for a stroke, but had a normal CT of the head. Her uncontrolled hypertension is likely related to recent medication change, fall/ injury, but UTI has been ruled out. Mentation and mental status are currently normal. She was thought to have a hypertensive encephalopathy, there was no evidence of an acute infection. Blood and urine cultures were negative. No stroke seen on head CT. Physical therapy has been consulted and recommends subacute rehabilitation. Patient would like to go to [facility]'s SNF. She will be discharged today. Total Time: 35 min Code: 80327 (>30min.) - Physical Exam Vital Signs: Last Vital Signs Temp 98.0 F 04/06/16 09:54 Pulse 74 04/06/16 09:54 Resp 18 04/06/16 09:54 BP 173/73 04/06/16 09:54 Pulse Ox 93 04/06/16 09:54 Oxygen Pulse Oxygen Saturation 93 O2 Device Room Air Oxygen Flow Rate Fraction of Inspired Oxygen ( FIO2) Constitutional: Alert (Awake, Fully oriented, well appearing. No apparent distress) Oriented to: Time, Person, Place - HEENT Head: Normal (normocephalic,atraumatic, trachea midline) Eye: Normal (EOMI, Sclera white) Oropharynx: Normal (moist) Tympanic Membrane: Dull ENT EAC: Normal Nose: No Symptoms Reported (without discharge or bleeding) - Respiratory/Cardiovascular Respiratory: Normal - CTA (Clear to auscultation bilaterally, no wheezing,rales or rhonchi. No use of accessory muscles) Cardiovascular: Normal - GI Palpation: Normal (soft, non distended and nontender) Tenderness: Non tender Rodriguez's Sign: Negative Rectal Exam: Deferred - Musculoskeletal Back: Normal Extremities: Normal (normal tone, no cyanosis or edema) - Integumentary Skin: Warm, Dry Lymphatics: Normal - Neurologic Memory Impaired: Normal Motor Function: Normal Cranial Nerve: Normal Cerebellar: Normal Mood Description: Normal (Fully oriented and appropiate affect) Thought: Coherent Perception: Normal
[2016-04-06 13:43] VITALS: BP 174/68; TEMP 97.5
== END 2016-04-06 15:14 | DRG 79 ==
LOC: ED 09:06 → EDINP 13:21 → PCU 16:54 → MPS3 04-05 20:14
PROVIDERS: ADMIT Internal Medicine; ATTEND Family Medicine
DX: I67.4 Hypertensive encephalopathy (principal); E11.42 Type 2 diabetes mellitus with diabetic polyneuropathy; I10 Essential (primary) hypertension; W19.XXXA Unspecified fall, initial encounter; Y93.9 Activity, unspecified; Y92.009 Unspecified place in unspecified non-institutional (private) residence as the place of occurrence of the external cause; E78.00 Pure hypercholesterolemia, unspecified; J45.909 Unspecified asthma, uncomplicated; Z87.440 Personal history of urinary (tract) infections; M19.90 Unspecified osteoarthritis, unspecified site; E03.9 Hypothyroidism, unspecified; Z86.73 Personal history of transient ischemic attack (TIA), and cerebral infarction without residual deficits; F41.9 Anxiety disorder, unspecified; Z88.8 Allergy status to other drugs, medicaments and biological substances; Z88.2 Allergy status to sulfonamides; Z88.5 Allergy status to narcotic agent; Z79.899 Other long term (current) drug therapy; Z79.82 Long term (current) use of aspirin; Z87.891 Personal history of nicotine dependence
CPT/HCPCS: 36415; 70450; 71010; 80048; 80053; 81001; 82043; 82550; 82962; 83036; 83605; 83880; 84484; 85025; 85027; 85610; 85730; 87040; 87086; 93005; 96372; 96374; 96375; 99285; J0360; J1650; J3490

== ENCOUNTER 2016-04-26 19:14 | Inpatient (IN) | payer MEDICARE, OTHER ==
[2016-04-26] MEDS ORDERED: NS 1,000 ML IV ONE (19:39)
[2016-04-26] MEDS ORDERED: SODIUM CHLORIDE 0.9% 10 ML FLUSH FLUSH PRN (19:39)
[2016-04-26 20:14] LABS: AUTOMATED BASOPHIL 0.7 % (0-2); AUTOMATED EOSINOPHIL 0.1 % (0-5); AUTOMATED LYMPH 9.2 % (17-44); MPV 10.2 fL (7.4-10.4)
[2016-04-26 20:28] LABS: PARTIAL THROMB. TIME 21.2 SEC (22-35)
--- NOTE | 2016-04-26 20:29 | DIRPT ---
CLINICAL DATA: Altered mental status. EXAM: CT HEAD WITHOUT CONTRAST TECHNIQUE: Contiguous axial images were obtained from the base of the skull through the vertex without intravenous contrast. COMPARISON: None. FINDINGS: Mild cerebral atrophy. No ventricular dilatation. Mild low-attenuation in the deep white matter suggesting small vessel ischemia. Focal low-attenuation is more pronounced in the left frontal white matter which may be due to small vessel ischemia or age indeterminate infarct. No mass effect or midline shift. No abnormal extra-axial fluid collections. Calderon-white matter junctions are distinct. Basal cisterns are not effaced. No evidence of acute intracranial hemorrhage. No depressed skull fractures. Visualized paranasal sinuses and mastoid air cells are not opacified. Vascular calcifications. IMPRESSION: Focal low-attenuation in the deep white matter of the left frontal lobe is somewhat asymmetric in could indicate age indeterminate ischemia. Otherwise no acute intracranial abnormalities. No acute intracranial hemorrhage. Mild atrophy and small vessel ischemic changes. These results were called by telephone at the time of interpretation on 04/26/2016 at 8:[address] Jauregui, who verbally acknowledged these results. Electronically Signed By: Popeye Moyer M.D. On: 04/26/2016 20:27
[2016-04-26 20:33] LABS: BLOOD UREA NITROGEN 31 MG/DL (7-17); CALCIUM 9.5 MG/DL (8.4-10.2); CALCULATED OSMOLALITY 273 MOs/Kg (270-290); CHLORIDE 97 mEq/L (98-107); GLUCOSE 210 MG/DL (70-99); SODIUM LEVEL 135 mEq/L (137-146); TOTAL PROTEIN 8.3 G/DL (6.3-8.2)
--- NOTE | 2016-04-26 20:44 | DIRPT ---
CLINICAL DATA: Acute CVA EXAM: PORTABLE CHEST 1 VIEW COMPARISON: 04/02/2016 FINDINGS: The heart is upper limits of normal in size and stable. There is tortuosity and calcification of the thoracic aorta. Chronic bronchitic type interstitial lung changes but no definite infiltrates or effusions. The bony thorax is intact. IMPRESSION: Chronic lung changes but no acute pulmonary findings. Electronically Signed By: Dawood Ledezma M.D. On: 04/26/2016 20:41
[2016-04-26 20:48] LABS: ALL NEG? NO
[2016-04-26 20:57] LABS: RBC/URINE 0-2 (0-5); WBC/URINE 0-2 (0-5)
[2016-04-26 20:58] LABS: LEUKOCYTES/URINE NEG (NEGATIVE); NITRITE/URINE NEG (NEGATIVE); URINE OCCULT BLOOD NEG (NEG/TRACE)
[2016-04-26 21:01] LABS: MDMA* NEG (NEGATIVE); METHAMPHETAMINES NEG (NEGATIVE); OXYCODONE NEG (NEGATIVE)
[2016-04-26 21:18] LABS: CPK TOTAL WITH POSSIBLE MB 22 IU/L (30-134)
[2016-04-26] MEDS ORDERED: ASPIRIN 300 MG SUPP PR ONE (21:26)
--- NOTE | 2016-04-26 21:31 | EDPRACDOC ---
- General Information Source: Patient, Family, Instructional Specialist Mode of Arrival:: Ambulance Exam Limitations: No Limitations - History of Present Illness Exact Onset of Symptoms: Unknown Symptoms Started: Reports: Gradually Symptoms: Reports: Other trouble talking, Other (HEADACHE) Symptoms Description: Constant Symptom Severity: Reports: Unable to performs ADL's Pain Quality: Reports: moderate Recent Head Trauma: Reports: No recent headache/trauma Head Injury Location: Reports: frontal Associated Symptoms: Reports: Nausea/Vomiting HPI: PT PRESENTS FROM LOCAL NURSING FACILITY. FAMILY STATES SHE WAS TALKING ON THE PHONE WITH A FRIEND TODAY AND CONTINUOUSLY COMPLAINED OF A HEADACHE AND WAS HAVING TIMES THAT HER WORDS DID NOT MAKE SENSE. UNKNOWN EXACTLY WHEN THE HEADACHE BEGAN. FRIEND CALLED FAMILY WHO WENT TO SEE THE PATIENT AND CALLED EMS. PT PRESENTS WITH CONSTANT FRONTAL HEADACHE, AND EXPRESSIVE APHASIA. PT DO NOT HAVE FACIAL DROOP OR ANY WEAKNESS NOTED. <Yakelin Multani - Last Filed: 04/26/16 21:47> <Elton Jauregui - Last Filed: 04/26/16 22:11> - General Chief Complaint: Altered Mental Status Stated Complaint: AMS Time Seen by Provider: 04/26/16 19:25 Allergies/Adverse Reactions: Allergies Allergy/AdvReac Type Severity Reaction Status Date / Time midazolam HCl [From Versed] Allergy Severe Confusion Verified 04/26/16 19:55 ethacrynic acid Allergy Mild Difficulty Verified 04/26/16 19:55 [From Edecrin] Breathing morphine Allergy Mild Unknown/See Verified 04/26/16 19:55 Comments Sulfa (Sulfonamide Allergy Mild Unknown/See Verified 04/26/16 19:55 Antibiotics) Comments [Sulfa(Sulfonamide Antibiotics)] adhesive tape Allergy Unknown/See Verified 04/26/16 19:55 Comments Home Medications: Ambulatory Orders Cholecalciferol [Vitamin D3 (cholecalciferol)] 1,000 unit PO DAILY 09/06/12 Duloxetine [Cymbalta] 30 mg PO DAILY 09/06/12 Esomeprazole Mag Trihydrate [Nexium] 40 mg PO BID 09/06/12 Ezetimibe [Zetia] 10 mg PO DAILY 09/06/12 Levothyroxine [Synthroid, Levoxyl] 175 mcg PO DAILY 09/06/12 Mometasone Furoate [Nasonex] 17 gm ELIS BID PRN 06/04/13 Telmisartan [Micardis] 80 mg PO DAILY 09/06/12 Gabapentin [Neurontin] 400 mg PO TID PRN 09/15/14 Hydrocodone Bit/Acetaminophen [[place] 5-325 Tablet] 1 - 2 tabs PO Q6H PRN Rosuvastatin [Crestor] 10 mg PO HS 09/15/14 Aspirin (Enteric Coated) [Halfprin] 81 mg PO DAILY 03/15/15 Clopidogrel Bisulfate [Plavix] 75 mg PO DAILY 03/15/15 Estradiol [Estrace] 2 gm PV .3 X PER WEEK 03/15/15 Fexofenadine HCl [Dionne] 180 mg PO DAILY PRN 03/15/15 Furosemide [Lasix] 20 mg PO DAILY PRN 03/15/15 Glimepiride [Amaryl] 2 mg PO DAILY 03/15/15 Liraglutide [Victoza 18 mg/3 ml Pen] 1.8 mg SQ DAILY 03/15/15 Nitrofurantoin [Macrobid] 100 mg PO DAILY 04/02/16 Polyethylene Glycol 3350 [Miralax] 17 gm PO DAILY PRN 04/02/16 Amlodipine [Norvasc] 10 mg PO DAILY #30 tab 04/06/16 Artificial Tears 2 drops OU BID #1 bottle 04/06/16 Artificial Tears 2 drops OU Q4H PRN #1 bottle 04/06/16 Carvedilol [Coreg] 3.125 mg PO BID #60 tablet 04/06/16 Albuterol Sulfate [Proair Hfa] 2 puff INH Q4H PRN 04/26/16 Cyanocobalamin (Vitamin B-12) [Vitamin B-12 (cyanocobalamin)] 3,000 mcg SL DAILY 04/26/16 Docusate Sodium [Colace] 200 mg PO DAILY 04/26/16 Melatonin/Pyridoxine [Melatonin 5 mg Tablet] 1 each PO HS 04/26/16 Mth/Me Blue/Sod Phos/Phen/Hyos [Uro-Mp Capsule] 1 each PO Q8H PRN 04/26/16 Multivitamin [Multi-Day Vitamins] 1 each PO DAILY 04/26/16 ED Past Medical History - History Reviewed Yes Nurses notes reviewed and agree except as marked - Patient Medical History Neurological History: Denies: Cerebrovascular Accident Cardiac History: Reports: Hypertension, Hypercholesterolemia Respiratory History: Reports: Asthma GI/ History: Reports: Renal Disease, Urinary Tract Infection Musculoskeletal History: Reports: Osteoarthritis (lumbar) Psychological History: Reports: Depression. Denies: Anxiety, Substance Use Disorder Systemic History: Reports: Diabetes, Hyperthyroidism, Hypothyroidism. Denies: Cancer Surgical History: Reports: Hysterectomy (partial), Tonsillectomy/Adnoidectomy - Family Medical History Reports: Diabetes (father), Cancer (mother colon), Cardiac Disorders (parents). Denies: Hypertension, Stroke - Social Medical History Smoking Status: Former smoker Social History: Denies: Substance Use Disorder <Yakelin Multani - Last Filed: 04/26/16 21:47> EDM Review of Systems - Review of Systems ROS Negative Except as Marked: Yes All systems reviewed and were negative except as marked <Yakelin Multani - Last Filed: 04/26/16 21:47> - Physical Exam Constitutional: Alert (SOME EXPRESSIVE APHASIA NOTED) Oriented to: Time, Person, Place Last recorded Vital Signs: Oxygen Pulse Oxygen Saturation O2 Device Oxygen Flow Rate Fraction of Inspired Oxygen ( FIO2) - HEENT Head: Normal ( normocephalic) Eye Exam: Normal (PERRL, EOMI, Sclera white) Oropharynx: Normal (Pharynx:Moist without exudate,Gums-no swelling) Nose: No Symptoms Reported (septum midline) Neck: Normal (FROM, trachea at midline) - Respiratory/Cardiovascular Respiratory: Normal - CTA (BBS clear to auscultation without adventitious sounds ) Cardiovascular: Tachycardia, Irregular - GI Auscultation: Normal (NABS) Palpation: Normal (Soft,No rebound or guarding, non distended) Tenderness: Non tender Rodriguez's Sign: Negative Rectal Exam: Deferred - Musculoskeletal Back: Normal (Non-Tender) Extremities: Normal (Normal tone, Pulses 2+ No cyanosis or edema, FROM) - Integumentary Skin: Normal, Warm, Dry Lymphatics: Normal (no adenopathy) - Neurologic Memory Impaired: Normal Motor Function: Normal (Normal tone, Pulses 2+ No cyanosis or edema, FROM) Cranial Nerve: Normal (CN II-X11 intact sensation, strength 5/5) Cerebellar: Normal Mood Description: Normal Thought: Coherent Perception: Normal <Yakelin Multani - Last Filed: 04/26/16 21:47> - Physical Exam Last recorded Vital Signs: Oxygen Pulse Oxygen Saturation O2 Device Oxygen Flow Rate Fraction of Inspired Oxygen ( FIO2) <Elton Jauregui Rooseveltirish - Last Filed: 04/26/16 22:11> NIH Stroke Scale Initial Evaluation Level of Consciousness: Alert LOC- Question: Answers Both Correctly LOC Commands: Both Task Correctly Best Gaze: Normal Visual: No Visual Loss Facial Palsy: Normal Movement Motor Arm LEFT: No Drift Motor Arm RIGHT: No Drift Motor Leg LEFT: No Drift Motor Leg RIGHT: No Drift Limb Ataxia: Absent Sensory: Normal Best Language: Mild to Moderate Aphasia Dysarthria: Normal Extinction and Inattention: No Abnormality (Neglect) Score: 1out of42 <RangelYakelin Santacruz - Last Filed: 04/26/16 21:47> - Differential Diagnosis CVA - Action Has patient received an Antithrombotic in the last 24hrs?: No Was an Antithrombotic given in the ED?: Yes Is patient a candidate for lytic therapy?: No Patient received TPA within 30 min of arrival?: No Reason IV Thrombolytics Contraindicated: Onset Undetermined Stroke Discharge Education: Risk Factors, Seeking Emerg. Treatment, Warning Signs/Symptoms, Medications at Discharge, Follow Up after Discharge - Results 04/26/16 20:00 04/26/16 20:00 WBC 15.3 xk/uL (3.8-10.8) H 04/26/16 20:00 RBC 4.48 xM/uL (4.20-5.40) 04/26/16 20:00 Hgb 13.6 g/dL (12.0-16.0) 04/26/16 20:00 Hct 40.8 % (36-47) 04/26/16 20:00 MCV 91 fL (81-99) 04/26/16 20:00 MCH 30.3 pg (27-32) 04/26/16 20:00 MCHC 33.3 g/dl (33-36) 04/26/16 20:00 RDW 15.7 % (11.5-14.5) H 04/26/16 20:00 Plt Count 289 xk/uL (130-400) 04/26/16 20:00 MPV 10.2 fL (7.4-10.4) 04/26/16 20:00 Neut % (Auto) 83.0 % (45-76) H 04/26/16 20:00 Lymph % (Auto) 9.2 % (17-44) L 04/26/16 20:00 [place] % (Auto) 7.0 % (3-10) 04/26/16 20:00 Eos % (Auto) 0.1 % (0-5) 04/26/16 20:00 Baso % (Auto) 0.7 % (0-2) 04/26/16 20:00 Absolute Neuts (auto) 12.70 xk/uL (1.7-8.2) H 04/26/16 20:00 Absolute Lymphs (auto) 1.38 xk/uL (0.65-4.75) 04/26/16 20:00 PT 10.0 SEC (9.2-11.2) 04/26/16 20:00 INR 1.0 04/26/16 20:00 APTT 21.2 SEC (22-35) L 04/26/16 20:00 Sodium 135 mEq/L (137-146) L 04/26/16 20:00 Potassium 4.3 mEq/L (3.5-5.1) 04/26/16 20:00 Chloride 97 mEq/L (98-107) L 04/26/16 20:00 Carbon Dioxide 25 mMOL/L (22-33) 04/26/16 20:00 Anion Gap 17 mEq/L (8-16) H 04/26/16 20:00 BUN 31 MG/DL (7-17) H 04/26/16 20:00 Creatinine 1.00 MG/DL (0.52-1.04) 04/26/16 20:00 Estimated GFR (MDRD) 53 mL/min (>=60) L 04/26/16 20:00 Glucose 210 MG/DL (70-99) H 04/26/16 20:00 Calculated Osmolality 273 MOs/Kg (270-290) 04/26/16 20:00 Lactic Acid 1.0 mEq/L (0.7-2.1) 04/26/16 19:45 Calcium 9.5 MG/DL (8.4-10.2) 04/26/16 20:00 Total Bilirubin 0.7 MG/DL (0.2-1.3) 04/26/16 20:00 AST 24 IU/L (14-36) 04/26/16 20:00 ALT 31 IU/L (9-52) 04/26/16 20:00 Alkaline Phosphatase 109 IU/L (55-165) 04/26/16 20:00 Creatine Kinase 22 IU/L (30-134) L 04/26/16 20:00 Troponin I < 0.01 ng/mL (<.04) 04/26/16 20:00 Total Protein 8.3 G/DL (6.3-8.2) H 04/26/16 20:00 Albumin 4.4 G/DL (3.5-5.0) 04/26/16 20:00 Urine Color Yellow 04/26/16 20:38 Urine Clarity Sl cldy 04/26/16 20:38 Urine pH 6.0 (5.0-8.0) 04/26/16 20:38 Ur Specific [place] 1.015 (1.003-1.035) 04/26/16 20:38 Urine Protein 1+ (NEG/TRACE) H 04/26/16 20:38 Urine Glucose (UA) 2+ (NEGATIVE) H 04/26/16 20:38 Urine Ketones Neg (NEGATIVE) 04/26/16 20:38 Urine Occult Blood Neg (NEG/TRACE) 04/26/16 20:38 Urine Nitrite Neg (NEGATIVE) 04/26/16 20:38 Urine Bilirubin Neg (NEGATIVE) 04/26/16 20:38 Urine Urobilinogen 0.2 MG/DL (0-1) 04/26/16 20:38 Ur Leukocyte Esterase Neg (NEGATIVE) 04/26/16 20:38 Urine RBC 0-2 (0-5) 04/26/16 20:38 Urine WBC 0-2 (0-5) 04/26/16 20:38 Urine Bacteria Few (NEG/FEW) 04/26/16 20:38 Hyaline Casts 2-5 (0-2) H 04/26/16 20:38 Urine Mucus Occ (NEG/OCC) 04/26/16 20:38 Urine Opiates Screen *positive* (NEGATIVE) H 04/26/16 20:38 Ur Oxycodone Screen Neg (NEGATIVE) 04/26/16 20:38 Urine Methadone Screen Neg (NEGATIVE) 04/26/16 20:38 Ur Barbiturates Screen Neg (NEGATIVE) 04/26/16 20:38 Ur Tricyclics Screen Neg (NEGATIVE) 04/26/16 20:38 Ur Phencyclidine Scrn Neg (NEGATIVE) 04/26/16 20:38 Ur Amphetamines Screen Neg (NEGATIVE) 04/26/16 20:38 U Methamphetamines Scrn Neg (NEGATIVE) 04/26/16 20:38 Urine MDMA Screen Neg (NEGATIVE) 04/26/16 20:38 U Benzodiazepines Scrn Neg (NEGATIVE) 04/26/16 20:38 Urine Cocaine Screen Neg (NEGATIVE) 04/26/16 20:38 Ur THC Screen Neg (NEGATIVE) 04/26/16 20:38 Lab Results 04/26/16 04/26/16 04/26/16 20:38 20:38 20:00 WBC RBC Hgb Hct MCV MCH MCHC RDW Plt Count MPV Neut % (Auto) Lymph % (Auto) [place] % (Auto) Eos % (Auto) Baso % (Auto) Absolute Neuts (auto) Absolute Lymphs (auto) PT 10.0 INR 1.0 APTT 21.2 L Sodium Potassium Chloride Carbon Dioxide Anion Gap BUN Creatinine Estimated GFR (MDRD) Glucose Calculated Osmolality Lactic Acid Calcium Total Bilirubin AST ALT Alkaline Phosphatase Creatine Kinase Troponin I Total Protein Albumin Urine Color Yellow Urine Clarity Sl cldy Urine pH 6.0 Ur Specific [place] 1.015 Urine Protein 1+ H Urine Glucose (UA) 2+ H Urine Ketones Neg Urine Occult Blood Neg Urine Nitrite Neg Urine Bilirubin Neg Urine Urobilinogen 0.2 Ur Leukocyte Esterase Neg Urine RBC 0-2 Urine WBC 0-2 Urine Bacteria Few Hyaline Casts 2-5 H Urine Mucus Occ Urine Opiates Screen *positive* H Ur Oxycodone Screen Neg Urine Methadone Screen Neg Ur Barbiturates Screen Neg Ur Tricyclics Screen Neg Ur Phencyclidine Scrn Neg Ur Amphetamines Screen Neg U Methamphetamines Scrn Neg Urine MDMA Screen Neg U Benzodiazepines Scrn Neg Urine Cocaine Screen Neg Ur THC Screen Neg 04/26/16 04/26/16 04/26/16 20:00 20:00 19:45 WBC 15.3 H RBC 4.48 Hgb 13.6 Hct 40.8 MCV 91 MCH 30.3 MCHC 33.3 RDW 15.7 H Plt Count 289 MPV 10.2 Neut % (Auto) 83.0 H Lymph % (Auto) 9.2 L [place] % (Auto) 7.0 Eos % (Auto) 0.1 Baso % (Auto) 0.7 Absolute Neuts (auto) 12.70 H Absolute Lymphs (auto) 1.38 PT INR APTT Sodium 135 L Potassium 4.3 Chloride 97 L Carbon Dioxide 25 Anion Gap 17 H BUN 31 H Creatinine 1.00 Estimated GFR (MDRD) 53 L Glucose 210 H Calculated Osmolality 273 Lactic Acid 1.0 Calcium 9.5 Total Bilirubin 0.7 AST 24 ALT 31 Alkaline Phosphatase 109 Creatine Kinase 22 L Troponin I < 0.01 Total Protein 8.3 H Albumin 4.4 Urine Color Urine Clarity Urine pH Ur Specific [place] Urine Protein Urine Glucose (UA) Urine Ketones Urine Occult Blood Urine Nitrite Urine Bilirubin Urine Urobilinogen Ur Leukocyte Esterase Urine RBC Urine WBC Urine Bacteria Hyaline Casts Urine Mucus Urine Opiates Screen Ur Oxycodone Screen Urine Methadone Screen Ur Barbiturates Screen Ur Tricyclics Screen Ur Phencyclidine Scrn Ur Amphetamines Screen U Methamphetamines Scrn Urine MDMA Screen U Benzodiazepines Scrn Urine Cocaine Screen Ur THC Screen - EKG EKG #1 EKG Time: 20:30 -: Yes EKG interpreted by me Rate: bpm: 117 [place]: Normal Rhythm: Afib (WITH RVR) Block: RBBB (LEFT ANTERIOR FASCICULAR BLOCK, BIFASICULAR BLOCK) Hypertrophy: None ST: Normal Comparison: 02/09/14 (NSR) <Yakelin Multani W - Last Filed: 04/26/16 21:47> - Results 04/26/16 20:00 04/26/16 20:00 WBC 15.3 xk/uL (3.8-10.8) H 04/26/16 20:00 RBC 4.48 xM/uL (4.20-5.40) 04/26/16 20:00 Hgb 13.6 g/dL (12.0-16.0) 04/26/16 20:00 Hct 40.8 % (36-47) 04/26/16 20:00 MCV 91 fL (81-99) 04/26/16 20:00 MCH 30.3 pg (27-32) 04/26/16 20:00 MCHC 33.3 g/dl (33-36) 04/26/16 20:00 RDW 15.7 % (11.5-14.5) H 04/26/16 20:00 Plt Count 289 xk/uL (130-400) 04/26/16 20:00 MPV 10.2 fL (7.4-10.4) 04/26/16 20:00 Neut % (Auto) 83.0 % (45-76) H 04/26/16 20:00 Lymph % (Auto) 9.2 % (17-44) L 04/26/16 20:00 [place] % (Auto) 7.0 % (3-10) 04/26/16 20:00 Eos % (Auto) 0.1 % (0-5) 04/26/16 20:00 Baso % (Auto) 0.7 % (0-2) 04/26/16 20:00 Absolute Neuts (auto) 12.70 xk/uL (1.7-8.2) H 04/26/16 20:00 Absolute Lymphs (auto) 1.38 xk/uL (0.65-4.75) 04/26/16 20:00 PT 10.0 SEC (9.2-11.2) 04/26/16 20:00 INR 1.0 04/26/16 20:00 APTT 21.2 SEC (22-35) L 04/26/16 20:00 Sodium 135 mEq/L (137-146) L 04/26/16 20:00 Potassium 4.3 mEq/L (3.5-5.1) 04/26/16 20:00 Chloride 97 mEq/L (98-107) L 04/26/16 20:00 Carbon Dioxide 25 mMOL/L (22-33) 04/26/16 20:00 Anion Gap 17 mEq/L (8-16) H 04/26/16 20:00 BUN 31 MG/DL (7-17) H 04/26/16 20:00 Creatinine 1.00 MG/DL (0.52-1.04) 04/26/16 20:00 Estimated GFR (MDRD) 53 mL/min (>=60) L 04/26/16 20:00 Glucose 210 MG/DL (70-99) H 04/26/16 20:00 Calculated Osmolality 273 MOs/Kg (270-290) 04/26/16 20:00 Lactic Acid 1.0 mEq/L (0.7-2.1) 04/26/16 19:45 Calcium 9.5 MG/DL (8.4-10.2) 04/26/16 20:00 Total Bilirubin 0.7 MG/DL (0.2-1.3) 04/26/16 20:00 AST 24 IU/L (14-36) 04/26/16 20:00 ALT 31 IU/L (9-52) 04/26/16 20:00 Alkaline Phosphatase 109 IU/L (55-165) 04/26/16 20:00 Creatine Kinase 22 IU/L (30-134) L 04/26/16 20:00 Troponin I < 0.01 ng/mL (<.04) 04/26/16 20:00 Total Protein 8.3 G/DL (6.3-8.2) H 04/26/16 20:00 Albumin 4.4 G/DL (3.5-5.0) 04/26/16 20:00 Urine Color Yellow 04/26/16 20:38 Urine Clarity Sl cldy 04/26/16 20:38 Urine pH 6.0 (5.0-8.0) 04/26/16 20:38 Ur Specific [place] 1.015 (1.003-1.035) 04/26/16 20:38 Urine Protein 1+ (NEG/TRACE) H 04/26/16 20:38 Urine Glucose (UA) 2+ (NEGATIVE) H 04/26/16 20:38 Urine Ketones Neg (NEGATIVE) 04/26/16 20:38 Urine Occult Blood Neg (NEG/TRACE) 04/26/16 20:38 Urine Nitrite Neg (NEGATIVE) 04/26/16 20:38 Urine Bilirubin Neg (NEGATIVE) 04/26/16 20:38 Urine Urobilinogen 0.2 MG/DL (0-1) 04/26/16 20:38 Ur Leukocyte Esterase Neg (NEGATIVE) 04/26/16 20:38 Urine RBC 0-2 (0-5) 04/26/16 20:38 Urine WBC 0-2 (0-5) 04/26/16 20:38 Urine Bacteria Few (NEG/FEW) 04/26/16 20:38 Hyaline Casts 2-5 (0-2) H 04/26/16 20:38 Urine Mucus Occ (NEG/OCC) 04/26/16 20:38 Urine Opiates Screen *positive* (NEGATIVE) H 04/26/16 20:38 Ur Oxycodone Screen Neg (NEGATIVE) 04/26/16 20:38 Urine Methadone Screen Neg (NEGATIVE) 04/26/16 20:38 Ur Barbiturates Screen Neg (NEGATIVE) 04/26/16 20:38 Ur Tricyclics Screen Neg (NEGATIVE) 04/26/16 20:38 Ur Phencyclidine Scrn Neg (NEGATIVE) 04/26/16 20:38 Ur Amphetamines Screen Neg (NEGATIVE) 04/26/16 20:38 U Methamphetamines Scrn Neg (NEGATIVE) 04/26/16 20:38 Urine MDMA Screen Neg (NEGATIVE) 04/26/16 20:38 U Benzodiazepines Scrn Neg (NEGATIVE) 04/26/16 20:38 Urine Cocaine Screen Neg (NEGATIVE) 04/26/16 20:38 Ur THC Screen Neg (NEGATIVE) 04/26/16 20:38 Lab Results 04/26/16 04/26/16 04/26/16 20:38 20:38 20:00 WBC RBC Hgb Hct MCV MCH MCHC RDW Plt Count MPV Neut % (Auto) Lymph % (Auto) [place] % (Auto) Eos % (Auto) Baso % (Auto) Absolute Neuts (auto) Absolute Lymphs (auto) PT 10.0 INR 1.0 APTT 21.2 L Sodium Potassium Chloride Carbon Dioxide Anion Gap BUN Creatinine Estimated GFR (MDRD) Glucose Calculated Osmolality Lactic Acid Calcium Total Bilirubin AST ALT Alkaline Phosphatase Creatine Kinase Troponin I Total Protein Albumin Urine Color Yellow Urine Clarity Sl cldy Urine pH 6.0 Ur Specific [place] 1.015 Urine Protein 1+ H Urine Glucose (UA) 2+ H Urine Ketones Neg Urine Occult Blood Neg Urine Nitrite Neg Urine Bilirubin Neg Urine Urobilinogen 0.2 Ur Leukocyte Esterase Neg Urine RBC 0-2 Urine WBC 0-2 Urine Bacteria Few Hyaline Casts 2-5 H Urine Mucus Occ Urine Opiates Screen *positive* H Ur Oxycodone Screen Neg Urine Methadone Screen Neg Ur Barbiturates Screen Neg Ur Tricyclics Screen Neg Ur Phencyclidine Scrn Neg Ur Amphetamines Screen Neg U Methamphetamines Scrn Neg Urine MDMA Screen Neg U Benzodiazepines Scrn Neg Urine Cocaine Screen Neg Ur THC Screen Neg 04/26/16 04/26/16 04/26/16 20:00 20:00 19:45 WBC 15.3 H RBC 4.48 Hgb 13.6 Hct 40.8 MCV 91 MCH 30.3 MCHC 33.3 RDW 15.7 H Plt Count 289 MPV 10.2 Neut % (Auto) 83.0 H Lymph % (Auto) 9.2 L [place] % (Auto) 7.0 Eos % (Auto) 0.1 Baso % (Auto) 0.7 Absolute Neuts (auto) 12.70 H Absolute Lymphs (auto) 1.38 PT INR APTT Sodium 135 L Potassium 4.3 Chloride 97 L Carbon Dioxide 25 Anion Gap 17 H BUN 31 H Creatinine 1.00 Estimated GFR (MDRD) 53 L Glucose 210 H Calculated Osmolality 273 Lactic Acid 1.0 Calcium 9.5 Total Bilirubin 0.7 AST 24 ALT 31 Alkaline Phosphatase 109 Creatine Kinase 22 L Troponin I < 0.01 Total Protein 8.3 H Albumin 4.4 Urine Color Urine Clarity Urine pH Ur Specific [place] Urine Protein Urine Glucose (UA) Urine Ketones Urine Occult Blood Urine Nitrite Urine Bilirubin Urine Urobilinogen Ur Leukocyte Esterase Urine RBC Urine WBC Urine Bacteria Hyaline Casts Urine Mucus Urine Opiates Screen Ur Oxycodone Screen Urine Methadone Screen Ur Barbiturates Screen Ur Tricyclics Screen Ur Phencyclidine Scrn Ur Amphetamines Screen U Methamphetamines Scrn Urine MDMA Screen U Benzodiazepines Scrn Urine Cocaine Screen Ur THC Screen - Additional Information Pt at facility, unclear exact time of onset. Focal NAVARRO more to left side. NO arm drift, slurred speech, focal weakness. NIH scale of 2 due to confusion primarily. Pt has confusion at baseline normally. Head CT shows focal lesion, non specific, could indicate age undetermined CVA. Pt with new atrial fib. Not a good candidate for TPA regardless in my opinion, agreed with this decision by family member, physician also. Plan to definitely admit for new atrial fib, possible acute or subacute CVA, need for neuro evaluation and MRI. <Elton Jauregui - Last Filed: 04/26/16 22:11> - Departure Disposition: Admit IP To This Hospital Education/Counseling Given To: Patient, Family Member Education/Counseling Given Regarding: Diagnosis, Treatment, Prognosis, Follow Up <Yakelin Multani - Last Filed: 04/26/16 21:47> - Departure Yes I personally saw and evaluated the patient. Decision to Admit Time: 20:30 Decision to admit date: 04/26/16 Decision to admit: from ED - Physician Consulted Hospitalist Time Called: 22:10 Provider Called: Solo Denton Time Care Technician Returned Call: 22:10 <Elton Jauregui - Last Filed: 04/26/16 22:11> - Departure Condition: Stable Final Diagnosis: New onset a-fib CVA (cerebral vascular accident) Qualifiers: CVA mechanism: unspecified Qualified Code(s): I63.9 - Cerebral infarction, unspecified Instructions: Atrial Fibrillation (ED) Referrals: Luis Alberto Villa MD [Primary Care Provider] - One Week
[2016-04-26] MEDS ORDERED: DILTIAZEM 25 MG/5 ML VIAL IV ONE (21:55)
--- NOTE | 2016-04-26 22:11 | HISTPHYS ---
- Chief Complaint Headache - Medical History Cardiac History: Reports: Hypertension, Hypercholesterolemia Respiratory History: Reports: Asthma GI/ History: Reports: Renal Disease, Urinary Tract Infection Musculoskeletal History: Reports: Osteoarthritis (lumbar) Systemic History: Reports: Diabetes, Hyperthyroidism, Hypothyroidism. Denies: Cancer Neurological History: Denies: Cerebrovascular Accident Psychological History: Reports: Depression. Denies: Anxiety, Substance Use Disorder - Surgical History Reports: Hysterectomy (partial), Tonsillectomy/Adnoidectomy - Medictions/Allergies Allergies midazolam HCl [From Versed] Allergy (Severe, Verified 04/26/16 19:55) Confusion ethacrynic acid [From Edecrin] Allergy (Mild, Verified 04/26/16 19:55) Difficulty Breathing UNKNOWN morphine Allergy (Mild, Verified 04/26/16 19:55) Unknown/See Comments MOUTH SWELLING Sulfa (Sulfonamide Antibiotics) [Sulfa(Sulfonamide Antibiotics)] Allergy (Mild, Verified 04/26/16 19:55) Unknown/See Comments SOB adhesive tape Allergy (Verified 04/26/16 19:55) Unknown/See Comments SKIN IRRITATION Home Medications Cholecalciferol [Vitamin D3 (cholecalciferol)] 1,000 unit PO DAILY 09/06/12 Duloxetine [Cymbalta] 30 mg PO DAILY 09/06/12 Esomeprazole Mag Trihydrate [Nexium] 40 mg PO BID 09/06/12 Ezetimibe [Zetia] 10 mg PO DAILY 09/06/12 Levothyroxine [Synthroid, Levoxyl] 175 mcg PO DAILY 09/06/12 Mometasone Furoate [Nasonex] 17 gm ELIS BID PRN 09/06/12 Telmisartan [Micardis] 80 mg PO DAILY 09/06/12 Gabapentin [Neurontin] 400 mg PO TID PRN 09/15/14 Hydrocodone Bit/Acetaminophen [[place]pines 5-325 Tablet] 1 - 2 tabs PO Q6H PRN Rosuvastatin [Crestor] 10 mg PO HS 09/15/14 Aspirin (Enteric Coated) [Halfprin] 81 mg PO DAILY 03/15/15 Clopidogrel Bisulfate [Plavix] 75 mg PO DAILY 03/15/15 Estradiol [Estrace] 2 gm PV .3 X PER WEEK 03/15/15 Fexofenadine HCl [Dionne] 180 mg PO DAILY PRN 03/15/15 Furosemide [Lasix] 20 mg PO DAILY PRN 03/15/15 Glimepiride [Amaryl] 2 mg PO DAILY 03/15/15 Liraglutide [Victoza 18 mg/3 ml Pen] 1.8 mg SQ DAILY 03/15/15 Nitrofurantoin [Macrobid] 100 mg PO DAILY 04/02/16 Polyethylene Glycol 3350 [Miralax] 17 gm PO DAILY PRN 04/02/16 Amlodipine [Norvasc] 10 mg PO DAILY #30 tab 04/06/16 Artificial Tears 2 drops OU BID #1 bottle 04/06/16 Artificial Tears 2 drops OU Q4H PRN #1 bottle 04/06/16 Carvedilol [Coreg] 3.125 mg PO BID #60 tablet 04/06/16 Albuterol Sulfate [Proair Hfa] 2 puff INH Q4H PRN 04/26/16 Cyanocobalamin (Vitamin B-12) [Vitamin B-12 (cyanocobalamin)] 3,000 mcg SL DAILY 04/26/16 Docusate Sodium [Colace] 200 mg PO DAILY 04/26/16 Melatonin/Pyridoxine [Melatonin 5 mg Tablet] 1 each PO HS 04/26/16 Mth/Me Blue/Sod Phos/Phen/Hyos [Uro-Mp Capsule] 1 each PO Q8H PRN 04/26/16 Multivitamin [Multi-Day Vitamins] 1 each PO DAILY 04/26/16 - Family History Reports: Diabetes (father), Cancer (mother colon), Cardiac Disorders (parents). Denies: Hypertension, Stroke - Social History Smoking Status: Former smoker Social History: Denies: Substance Use Disorder - Physical Exam Constitutional: Alert (Awake, Fully oriented, well appearing. No apparent distress) Oriented to: Person Exam: This is an 80-year-old female with a history of diabetes and hypertension who was being admitted to the hospital [facility] due to frontal stroke. Per her family was at the bedside, she has been in her usual state of health the last several days, she is very active and plays bridge 3 times a week. However, since this morning she has been suddenly very confused, EMS was brought to her home and she continued to exhibit confusion, saying nonsensical things. Neurologically she is otherwise completely intact without any slurred speech, facial droop or extremity weakness or complaints of numbness or tingling. Evaluation in the emergency department revealed atrial fibrillation, which is a new diagnosis for this patient. She was also found to have abnormality on CT scan of the head, for which reason she is being admitted to the hospital for further CVA workup. Per the family, she has not had any chest pain, shortness of breath, nausea, vomiting, fevers, chills, recent falls or changes in medication. She does take pain medication due to her chronic pain, and family has some concern that she may be taking extra doses of her pain medication especially since she has been complaining of a headache for the last couple of days. - HEENT Head: Normal (normocephalic,atraumatic, trachea midline) Eye: Normal (EOMI, Sclera white) Oropharynx: Normal (moist) Nose: No Symptoms Reported (without discharge or bleeding) Respiratory: Normal - CTA (Clear to auscultation bilaterally, no wheezing,rales or rhonchi. No use of accessory muscles) Cardiovascular: Normal (RRR, no murmurs, rubs or gallops) - GI Palpation: Normal (soft, non distended and nontender) - Musculoskeletal Extremities: Normal (normal tone, no cyanosis or edema) - Integumentary Skin: Normal (no rashes or lesions) - Neurologic Cranial Nerve: Normal (CN II-XII intact) Mood Description: Normal (Fully oriented and appropiate affect) - Lab Results Laboratory Tests 04/26/16 04/26/16 04/26/16 19:45 20:00 20:00 WBC 15.3 H Hgb 13.6 Hct 40.8 Plt Count 289 INR Potassium 4.3 BUN 31 H Creatinine 1.00 Lactic Acid 1.0 Troponin I < 0.01 04/26/16 20:00 WBC Hgb Hct Plt Count INR 1.0 Potassium BUN Creatinine Lactic Acid Troponin I - Diagnostic Findings Head CT: Focal low-attenuation in the deep white matter of the left frontal lobe is somewhat asymmetric in could indicate age indeterminate ischemia. Otherwise no acute intracranial abnormalities. No acute intracranial hemorrhage. Mild atrophy and small vessel ischemic changes. - Assessment (1) CVA (cerebral vascular accident) I63.9 - CEREBRAL INFARCTION, UNSPECIFIED Acute Qualifiers: CVA mechanism: unspecified Precerebral and cerebral artery: P Laterality of affected vessel: L Qualified Code(s): I63.9 - Cerebral infarction, unspecified Patient is being admitted to the hospital due to left frontal stroke of indeterminate age. She will be admitted to the hospital using evidence based care stroke order set, to include admission to telemetry floor, NPO status to evaluated by speech therapy, she will also be seen by physical and occupational therapy services. Continue aspirin, beta-marian and home statin. Check fasting lipids in the morning. She will have MRI of the brain, as well as carotid Doppler ultrasound and 2D echocardiogram of the heart in the morning. Permissive hypertension for the 1st 48 hours, will tolerate SBP up to 200. Will also start her on full anticoagulation since she has concomitant atrial fibrillation. Consider Neurology consultation in the morning. (2) New onset a-fib I48.91 - UNSPECIFIED ATRIAL FIBRILLATION Acute She has new onset atrial fibrillation here in the hospital, she is not having any rapid ventricular response. At this time, will continue the patient's home beta-marian and consider increasing it for rate control. Will also start the patient on full- dose Lovenox at this time, she tolerates well she would be a good candidate for Eliquis anticoagulation. She is quite active at baseline, does not have any history of falls with injury. (3) DMII (diabetes mellitus, type 2) E11.9 - TYPE 2 DIABETES MELLITUS WITHOUT COMPLICATIONS Acute Qualifiers: Diabetes mellitus complication status: D Diabetes mellitus complication detail: D Diabetic retinopathy severity: D Proliferative retinopathy type: P Diabetes mellitus macular edema: D Diabetes mellitus terminal system operator insulin use : D Laterality: L Chronic kidney disease stage: C Diabetic diet when eating, continue home oral diabetic medications if he is cleared for a diet. Add q.a.c. and HS blood sugar checks, as well as sliding scale insulin. Last hemoglobin A1c was 8.5. (4) HTN (hypertension) I10 - ESSENTIAL (PRIMARY) HYPERTENSION Acute Qualifiers: Hypertension type: H Holding home antihypertensive medications other than her beta-marian. Due to stroke as mentioned above. - Plan In summary this patient is acutely and critically ill. The patient requires treatment of vital organ failure and measures to prevent further life- threatening deterioration of the above conditions. I personally reviewed and ordered lab testing, as well as imaging. I reviewed old medical records from previous hospitalizations as available, and spent the time mentioned below in critical care of this patient including counseling and coordination of care. Total Time: 65
[2016-04-26] MEDS ORDERED: FEXOFENADINE HCL 180 MG TAB PO PRN (22:16)
[2016-04-26] MEDS ORDERED: PEG-ELECTROLYTE 17 GM PACK PO PRN (22:16)
[2016-04-26] MEDS ORDERED: GABAPENTIN 400 MG CAP PO PRN (22:16)
[2016-04-26] MEDS ORDERED: MOMETASONE FUROATE 17 GM NAS PRN (22:16)
[2016-04-26] MEDS ORDERED: ARTIFICIAL TEARS OPH SOLN 15 ML OU PRN (22:16)
[2016-04-26] MEDS ORDERED: ACETAMINOPHEN 325 MG/TAB TABLET PO PRN (22:18)
[2016-04-26] MEDS ORDERED: ONDANSETRON HCL 4 MG/2 ML VIAL IV PRN (22:18)
[2016-04-26] MEDS ORDERED: FLUTICASONE PROPIONATE 16 GM BOT NAS PRN (22:30)
[2016-04-26] MEDS ORDERED: ESTRADIOL PV SCH (22:30)
[2016-04-26] MEDS ORDERED: ARTIFICIAL TEARS OPH SOLN 15 ML OU SCH (23:00)
[2016-04-26] MEDS ORDERED: LIRAGLUTIDE 18 MG/3ML (0.6 MG/0.1 ML) PEN SQ SCH (23:00)
[2016-04-26] MEDS ORDERED: Enoxaparin Treatment Dose per Pharmacy SQ SCH (23:00)
[2016-04-26 23:06] LABS: CPK TOTAL WITH POSSIBLE MB 20 IU/L (30-134)
[2016-04-27] MEDS: ENOXAPARIN 60 MG/0.6 ML PFS SQ SCH ×2 (01:06→13:36)
[2016-04-27] MEDS: PANTOPRAZOLE 40 MG TAB PO SCH ×2 (03:41→17:39)
[2016-04-27] MEDS ORDERED: Vaccine Screening Complete SCH (04:00)
[2016-04-27 07:14] LABS: MPV 9.8 fL (7.4-10.4)
[2016-04-27 07:40] LABS: BLOOD UREA NITROGEN 25 MG/DL (7-17); CALCIUM 9.2 MG/DL (8.4-10.2); CALCULATED OSMOLALITY 268 MOs/Kg (270-290); CHLORIDE 98 mEq/L (98-107); GLUCOSE 167 MG/DL (70-99); LDL (calc.) 62.2 MG/DL (<100); SODIUM LEVEL 135 mEq/L (137-146); VLDL (calc.) 31.8 MG/DL (5-40)
[2016-04-27] MEDS ORDERED: PERFLUTREN LIPID MICROSPHERE 1.5 ML VIAL IV ONE (08:00)
[2016-04-27] MEDS ORDERED: LEVOTHYROXINE 100 MCG, LEVOTHYROXINE 75 MCG PO SCH ×2 (09:00)
[2016-04-27] MEDS ORDERED: LEVOTHYROXINE 175 MCG PO SCH (09:00)
[2016-04-27] MEDS ORDERED: Non-Formulary Medication ITEM (Esomeprazole Mag Trihydrate [Nexium] 40 MG) PO SCH (09:00)
[2016-04-27] MEDS ORDERED: LORAZEPAM 2 MG/ML VIAL IV ONE (09:19)
[2016-04-27] MEDS: CARVEDILOL 3.125 MG TAB PO SCH ×2 (10:35→20:34)
[2016-04-27] MEDS: DULOXETINE 30 MG CAP PO SCH (10:36)
[2016-04-27] MEDS: GLIMEPIRIDE 2 MG TAB PO SCH (10:36)
[2016-04-27] MEDS: CLOPIDOGREL 75 MG TAB PO SCH (10:37)
[2016-04-27] MEDS: EZETIMIBE 10 MG TAB PO SCH (10:38)
[2016-04-27] MEDS: LIRAGLUTIDE 18 MG/3ML (0.6 MG/0.1 ML) PEN SQ SCH (10:38)
[2016-04-27] MEDS: ARTIFICIAL TEARS OPH SOLN 15 ML OU SCH ×2 (10:53→20:33)
[2016-04-27] MEDS: Docusate Sodium 100 MG CAP PO SCH (10:54)
--- NOTE | 2016-04-27 11:27 | CAPUECHO ---
INDICATION: ischemic stroke HEIGHT: 182.9 cm (6 ft 0.0 in) WEIGHT: 123.4 kg (272.0 lbs) BP: 146/65 BSA: 2.462012 m MEASUREMENTS 2D RVIDd: 3.1 cm LA Diam: 4.6 cm EF Biplane: 45.12 % LAESV MOD A4C: 115.0 ml LAESV MOD A2C: 93.3 ml LAESV Index (A-L): 48.42 ml/m M-MODE IVSd: 1.2 cm LVIDd: 5.7 cm LVPWd: 1.2 cm LVIDs: 4.1 cm EF(Teich): 54 % DOPPLER MV E David: 0.83 m/s MV A David: 0.94 m/s MV PHT: 68.68 ms MVA By PHT: 3.20 cm LVOT Vmax: 0.85 m/s AV Vmax: 1.40 m/s FINDINGS ------- Procedure:2D images, m-mode, color and spectral Doppler were obtained and reviewed. ECG rhythm:Sinus rhythm. Study quality:This was a technically difficult study with suboptimal views. Defintity was used for L V opacification. Left Ventricle:The left ventricular size is normal. There is mild concentric left ventricular hype rtrophy. Overall left ventricular systolic function is normal with, an EF between 60 - 65 %. The diastolic filling pattern indicates impaired relaxation. Right Ventricle:The right ventricle is normal in size and function. Left Atrium:The left atrium is mildly dilated. Right Atrium:The right atrium is normal in size and function. Aortic Valve:The aortic valve is trileaflet, and appears structurally normal. No aortic stenosis or regurgitation. There is mild aortic valve sclerosis. Mitral Valve:Normal appearing mitral valve. Moderate mitral annular calcification present. Ther e is trace to mild mitral regurgitation. Tricuspid Valve:The tricuspid valve appears structurally normal. Trace tricuspid regurgitation pre sent. Pulmonic Valve:The pulmonic valve is normal. There is no pulmonic regurgitation present. Aorta:The aortic root, ascending aorta and aortic arch appear normal. IVC:Normal inferior vena cava with normal inspiratory collapse. Pericardium:There is no pericardial effusion. CONCLUSIONS 1. This was a technically difficult study with suboptimal views. Defintity was used for LV opacifica tion. 2. Overall left ventricular systolic function is normal with, an EF between 60 - 65 %. 3. The diastolic filling pattern indicates impaired relaxation. 4. The left atrium is mildly dilated. 5. There is trace to mild mitral regurgitation. 6. Trace tricuspid regurgitation present. Electronically Signed By: Daryl Varma MD -- Electronically Signed On: 11:27:23
--- NOTE | 2016-04-27 16:50 | DIRPT ---
CLINICAL DATA: Hypertension, stroke symptoms, syncope and diabetes EXAM: BILATERAL CAROTID DUPLEX ULTRASOUND TECHNIQUE: Calderon scale imaging, color Doppler and duplex ultrasound were performed of bilateral carotid and vertebral arteries in the neck. COMPARISON: None. FINDINGS: Criteria: Quantification of carotid stenosis is based on velocity parameters that correlate the residual internal carotid diameter with NASCET-based stenosis levels, using the diameter of the distal internal carotid lumen as the denominator for stenosis measurement. The following velocity measurements were obtained: RIGHT ICA: 83/19 cm/sec CCA: 80/16 cm/sec SYSTOLIC ICA/CCA RATIO: 1.04 DIASTOLIC ICA/CCA RATIO: 1.18 ECA: 93 cm/sec LEFT ICA: 84/21 cm/sec CCA: 92/10 cm/sec SYSTOLIC ICA/CCA RATIO: 0.91 DIASTOLIC ICA/CCA RATIO: 2.1 ECA: 108 Cm/sec RIGHT CAROTID ARTERY: Minor echogenic shadowing plaque formation. No hemodynamically significant right ICA stenosis, velocity elevation, or turbulent flow. Degree of narrowing less than 50%. RIGHT VERTEBRAL ARTERY: Antegrade LEFT CAROTID ARTERY: Similar scattered minor echogenic plaque formation. No hemodynamically significant left ICA stenosis, velocity elevation, or turbulent flow. LEFT VERTEBRAL ARTERY: Antegrade IMPRESSION: Minor carotid atherosclerosis. No hemodynamically significant ICA stenosis. Degree of narrowing less than 50% bilaterally. Electronically Signed By: Giovani Abbasi M.D. On: 04/27/2016 16:47
--- NOTE | 2016-04-27 17:00 | GENMEDPROG ---
Chief Complaint: Confusion has resolved patient is awake alert orient times 3 Notes Reviewed: Yes Events from last night noted and discussed with Clinical Staff Current Medication List: Reviewed DVT Prophylaxis: Yes - Physical Examination Vital Signs and I&O: Last Vital Signs Temp 98.1 F 04/27/16 16:51 Pulse 64 04/27/16 16:51 Resp 18 04/27/16 16:51 BP 135/70 04/27/16 16:51 Pulse Ox 93 04/27/16 16:51 Oxygen Pulse Oxygen Saturation 93 O2 Device Room Air Oxygen Flow Rate Fraction of Inspired Oxygen ( FIO2) Intake & Output 04/24/16 04/25/16 04/26/16 04/27/16 23:59 23:59 23:59 23:59 Intake Total 405 Balance 405 Patient's weight 123.604 kg 118.977 kg General: Alert, Oriented x3, No acute distress, Well appearing, Well nourished HEENT: Normal (Normocephalic, atraumatic;EOMI.Sclera white, Nares patent, without discharge or bleeding. No oropharyngeal lesions or erythema. Mucous membranes are dry.) Neck: Non-tender, Normal Trachea alignment, Normal inspection (No cervical lymphadenopathy. No supraclavicular lymphadenopathy.), No Masses palpable, Limited range of motion, Supple Lymphatics: Normal (No lymph node swelling or pain.) Respiratory: Normal - CTA (Clear to auscultation bilaterally, no wheezing,rales or rhonchi. No use of accessory muscles) Cardiovascular: Regular rate and rhythm (No bradycardia or tachycardia), Normal S1, No Gallops,Rubs/Murmurs, Normal S2, Good Pedal Pulses (DP pulses 2+ bilaterally) GI: Normal bowel sounds (normal active sounds), Soft (non-distended), Non tender , No hepatospenomegaly, No masses Extremities/Musculoskeletal: Normal pulses (DP pulses 2+ bilaterally) Skin: Warm,Dry and Intact, No rashes, No significant lesion Neurological: Normal speech, Strength at 5/5 X4 ext (Motor 5/5 throughout.), Normal tone, Cranial nerves 3-12 NL ( 2-12 grossly intact.), Other (Finger to nose bilaterally normal). negative: Contractures, Drowsy, Dysmetria, Lethargy Psych/Mental Status: Appropriate, Normal Affect Lab/DI/Studies Reviewed: 04/27/16 06:30 04/27/16 06:30 Laboratory Results - last 24 hr 04/26/16 04/26/16 04/26/16 19:39 19:45 20:00 WBC RBC Hgb Hct MCV MCH MCHC RDW Plt Count MPV Neut % (Auto) Lymph % (Auto) [place] % (Auto) Eos % (Auto) Baso % (Auto) Absolute Neuts (auto) Absolute Lymphs (auto) ESR PT INR APTT Sodium 135 L Potassium 4.3 Chloride 97 L Carbon Dioxide 25 Anion Gap 17 H BUN 31 H Creatinine 1.00 Estimated GFR (MDRD) 53 L Glucose 210 H POC Capillary Glucose Calculated Osmolality 273 Lactic Acid 1.0 Calcium 9.5 Total Bilirubin 0.7 AST 24 ALT 31 Alkaline Phosphatase 109 Creatine Kinase 22 L Troponin I < 0.01 Total Protein 8.3 H Albumin 4.4 Triglycerides Cholesterol LDL Cholesterol, Calc VLDL Cholesterol, Calc HDL Cholesterol Cholesterol/HDL Ratio TSH Urine Color Urine Clarity Urine pH Ur Specific [place] Urine Protein Urine Glucose (UA) Urine Ketones Urine Occult Blood Urine Nitrite Urine Bilirubin Urine Urobilinogen Ur Leukocyte Esterase Urine RBC Urine WBC Urine Bacteria Hyaline Casts Urine Mucus Urine Opiates Screen Ur Oxycodone Screen Urine Methadone Screen Ur Barbiturates Screen Ur Tricyclics Screen Ur Phencyclidine Scrn Ur Amphetamines Screen U Methamphetamines Scrn Urine MDMA Screen U Benzodiazepines Scrn Urine Cocaine Screen Ur THC Screen Blood Type Cancelled Antibody Screen Cancelled 04/26/16 04/26/16 04/26/16 20:00 20:00 20:38 WBC 15.3 H RBC 4.48 Hgb 13.6 Hct 40.8 MCV 91 MCH 30.3 MCHC 33.3 RDW 15.7 H Plt Count 289 MPV 10.2 Neut % (Auto) 83.0 H Lymph % (Auto) 9.2 L [place] % (Auto) 7.0 Eos % (Auto) 0.1 Baso % (Auto) 0.7 Absolute Neuts (auto) 12.70 H Absolute Lymphs (auto) 1.38 ESR PT 10.0 INR 1.0 APTT 21.2 L Sodium Potassium Chloride Carbon Dioxide Anion Gap BUN Creatinine Estimated GFR (MDRD) Glucose POC Capillary Glucose Calculated Osmolality Lactic Acid Calcium Total Bilirubin AST ALT Alkaline Phosphatase Creatine Kinase Troponin I Total Protein Albumin Triglycerides Cholesterol LDL Cholesterol, Calc VLDL Cholesterol, Calc HDL Cholesterol Cholesterol/HDL Ratio TSH Urine Color Urine Clarity Urine pH Ur Specific [place] Urine Protein Urine Glucose (UA) Urine Ketones Urine Occult Blood Urine Nitrite Urine Bilirubin Urine Urobilinogen Ur Leukocyte Esterase Urine RBC Urine WBC Urine Bacteria Hyaline Casts Urine Mucus Urine Opiates Screen *positive* H Ur Oxycodone Screen Neg Urine Methadone Screen Neg Ur Barbiturates Screen Neg Ur Tricyclics Screen Neg Ur Phencyclidine Scrn Neg Ur Amphetamines Screen Neg U Methamphetamines Scrn Neg Urine MDMA Screen Neg U Benzodiazepines Scrn Neg Urine Cocaine Screen Neg Ur THC Screen Neg Blood Type Antibody Screen 04/26/16 04/26/16 04/27/16 20:38 22:43 06:30 WBC RBC Hgb Hct MCV MCH MCHC RDW Plt Count MPV Neut % (Auto) Lymph % (Auto) [place] % (Auto) Eos % (Auto) Baso % (Auto) Absolute Neuts (auto) Absolute Lymphs (auto) ESR PT INR APTT Sodium Potassium Chloride Carbon Dioxide Anion Gap BUN Creatinine Estimated GFR (MDRD) Glucose POC Capillary Glucose Calculated Osmolality Lactic Acid Calcium Total Bilirubin AST ALT Alkaline Phosphatase Creatine Kinase 20 L Troponin I < 0.01 Total Protein Albumin Triglycerides Cholesterol LDL Cholesterol, Calc VLDL Cholesterol, Calc HDL Cholesterol Cholesterol/HDL Ratio TSH 0.18 L Urine Color Yellow Urine Clarity Sl cldy Urine pH 6.0 Ur Specific [place] 1.015 Urine Protein 1+ H Urine Glucose (UA) 2+ H Urine Ketones Neg Urine Occult Blood Neg Urine Nitrite Neg Urine Bilirubin Neg Urine Urobilinogen 0.2 Ur Leukocyte Esterase Neg Urine RBC 0-2 Urine WBC 0-2 Urine Bacteria Few Hyaline Casts 2-5 H Urine Mucus Occ Urine Opiates Screen Ur Oxycodone Screen Urine Methadone Screen Ur Barbiturates Screen Ur Tricyclics Screen Ur Phencyclidine Scrn Ur Amphetamines Screen U Methamphetamines Scrn Urine MDMA Screen U Benzodiazepines Scrn Urine Cocaine Screen Ur THC Screen Blood Type Antibody Screen 04/27/16 04/27/16 04/27/16 06:30 06:30 06:30 WBC 12.8 H RBC 4.26 Hgb 12.8 Hct 38.8 MCV 91 MCH 30.0 MCHC 32.9 L RDW 15.6 H Plt Count 244 MPV 9.8 Neut % (Auto) Lymph % (Auto) [place] % (Auto) Eos % (Auto) Baso % (Auto) Absolute Neuts (auto) Absolute Lymphs (auto) ESR 65 H PT INR APTT Sodium 135 L Potassium 4.7 Chloride 98 Carbon Dioxide 27 Anion Gap 15 BUN 25 H Creatinine 0.80 Estimated GFR (MDRD) > 60 Glucose 167 H POC Capillary Glucose Calculated Osmolality 268 L Lactic Acid Calcium 9.2 Total Bilirubin AST ALT Alkaline Phosphatase Creatine Kinase Troponin I Total Protein Albumin Triglycerides 159 H Cholesterol 160 LDL Cholesterol, Calc 62.2 VLDL Cholesterol, Calc 31.8 HDL Cholesterol 66.0 Cholesterol/HDL Ratio 2.4 TSH Urine Color Urine Clarity Urine pH Ur Specific [place] Urine Protein Urine Glucose (UA) Urine Ketones Urine Occult Blood Urine Nitrite Urine Bilirubin Urine Urobilinogen Ur Leukocyte Esterase Urine RBC Urine WBC Urine Bacteria Hyaline Casts Urine Mucus Urine Opiates Screen Ur Oxycodone Screen Urine Methadone Screen Ur Barbiturates Screen Ur Tricyclics Screen Ur Phencyclidine Scrn Ur Amphetamines Screen U Methamphetamines Scrn Urine MDMA Screen U Benzodiazepines Scrn Urine Cocaine Screen Ur THC Screen Blood Type Antibody Screen 04/27/16 17:53 WBC RBC Hgb Hct MCV MCH MCHC RDW Plt Count MPV Neut % (Auto) Lymph % (Auto) [place] % (Auto) Eos % (Auto) Baso % (Auto) Absolute Neuts (auto) Absolute Lymphs (auto) ESR PT INR APTT Sodium Potassium Chloride Carbon Dioxide Anion Gap BUN Creatinine Estimated GFR (MDRD) Glucose POC Capillary Glucose 134 H Calculated Osmolality Lactic Acid Calcium Total Bilirubin AST ALT Alkaline Phosphatase Creatine Kinase Troponin I Total Protein Albumin Triglycerides Cholesterol LDL Cholesterol, Calc VLDL Cholesterol, Calc HDL Cholesterol Cholesterol/HDL Ratio TSH Urine Color Urine Clarity Urine pH Ur Specific [place] Urine Protein Urine Glucose (UA) Urine Ketones Urine Occult Blood Urine Nitrite Urine Bilirubin Urine Urobilinogen Ur Leukocyte Esterase Urine RBC Urine WBC Urine Bacteria Hyaline Casts Urine Mucus Urine Opiates Screen Ur Oxycodone Screen Urine Methadone Screen Ur Barbiturates Screen Ur Tricyclics Screen Ur Phencyclidine Scrn Ur Amphetamines Screen U Methamphetamines Scrn Urine MDMA Screen U Benzodiazepines Scrn Urine Cocaine Screen Ur THC Screen Blood Type Antibody Screen - Assessment (1) Transient global amnesia Acute G45.4 - TRANSIENT GLOBAL AMNESIA Comment/Plan: Apparently had confusion yesterday that has subsided today. Refused to take MRI today even with sedation by benzodiazepine. Given that will repeat her CT in a.m.. She did have some left frontal ischemic changes on her CT brain. She is already taking aspirin and Plavix for peripheral vascular disease. (2) Paroxysmal atrial fibrillation Acute I48.0 - PAROXYSMAL ATRIAL FIBRILLATION Comment/Plan: Discussed with Dr. Varma and patient as well as her daughter. The daughter requested that we use 1 of the newer agents, like Eliquis, that would not warrant the necessity of getting multiple blood tests done, such as Coumadin. For that reason Eliquis 5 mg p.o. twice daily started 04/27/2016 and stop full-dose Lovenox tonight. (3) DMII (diabetes mellitus, type 2) Chronic E11.9 - TYPE 2 DIABETES MELLITUS WITHOUT COMPLICATIONS Qualifiers: Diabetes mellitus complication status: with neurologic complications Diabetes mellitus complication detail: with polyneuropathy Diabetic retinopathy severity: D Proliferative retinopathy type: P Diabetes mellitus macular edema: D Diabetes mellitus correction insulin use: without correction use Laterality: L Chronic kidney disease stage: C Qualified Code(s): E11.42 - Type 2 diabetes mellitus with diabetic polyneuropathy Comment/Plan: Diabetic diet when eating, continue home oral diabetic medications if he is cleared for a diet. Add q.a.c. and HS blood sugar checks, as well as sliding scale insulin. Last hemoglobin A1c was 8.5. (4) HTN (hypertension) Acute I10 - ESSENTIAL (PRIMARY) HYPERTENSION Qualifiers: Hypertension type: essential hypertension Comment/Plan: Will reinstitute antihypertensive therapy she was taking at home. (5) Obesity (BMI 35.0-39.9 without comorbidity) Chronic E66.9 - OBESITY, UNSPECIFIED Comment/Plan: Dietary And exercise therapy is necessary for weight loss. Case Care Discussed with: Patient, Consultants, Family, Nursing Staff Education/Counseling Given To: Patient Education/Counseling Given Regarding: Diagnosis Total Time: 42 minutes Critical Care: No Code: 66259 (12+)
[2016-04-27] MEDS: HYDROCODONE 5 MG/ACETAMIN 325 MG TAB PO PRN (17:39)
[2016-04-27] MEDS: REGULAR INSULIN 100 UNITS/ML - 3 ML VIAL SQ SCH (17:55)
[2016-04-27] MEDS ORDERED: PHENAZOPYRIDINE 100 MG TAB PO PRN (18:34)
[2016-04-27] MEDS ORDERED: ROSUVASTATIN 10 MG TAB PO SCH (21:00)
[2016-04-27] MEDS ORDERED: PYRIDOXINE PO SCH (21:00)
[2016-04-27] MEDS ORDERED: MELATONIN PO SCH (21:00)
[2016-04-27] MEDS: APIXABAN 5 MG TABLET PO SCH (22:18)
[2016-04-28 04:42] VITALS: BMI 35.2
[2016-04-28] MEDS: HYDROCODONE 5 MG/ACETAMIN 325 MG TAB PO PRN (05:17)
[2016-04-28] MEDS: PANTOPRAZOLE 40 MG TAB PO SCH (05:17)
[2016-04-28 05:34] LABS: MPV 10.1 fL (7.4-10.4)
[2016-04-28 05:45] LABS: BLOOD UREA NITROGEN 26 MG/DL (7-17); CALCIUM 9.2 MG/DL (8.4-10.2); CALCULATED OSMOLALITY 269 MOs/Kg (270-290); CHLORIDE 100 mEq/L (98-107); GLUCOSE 173 MG/DL (70-99); SODIUM LEVEL 135 mEq/L (137-146)
[2016-04-28] MEDS: GLIMEPIRIDE 2 MG TAB PO SCH (06:16)
[2016-04-28] MEDS: REGULAR INSULIN 100 UNITS/ML - 3 ML VIAL SQ SCH (06:20)
[2016-04-28] MEDS: CARVEDILOL 3.125 MG TAB PO SCH (07:48)
[2016-04-28] MEDS: CLOPIDOGREL 75 MG TAB PO SCH (07:49)
[2016-04-28] MEDS: DULOXETINE 30 MG CAP PO SCH (07:49)
[2016-04-28] MEDS: EZETIMIBE 10 MG TAB PO SCH (07:50)
[2016-04-28] MEDS: LIRAGLUTIDE 18 MG/3ML (0.6 MG/0.1 ML) PEN SQ SCH (07:50)
[2016-04-28] MEDS ORDERED: LEVOTHYROXINE 150 MCG (0.15 MG)TAB PO SCH (09:00)
[2016-04-28] MEDS ORDERED: TELMISARTAN 40 MG TAB PO SCH (09:00)
[2016-04-28] MEDS ORDERED: AMLODIPINE 10 MG TAB PO SCH (09:00)
--- NOTE | 2016-04-28 09:03 | DIRPT ---
CLINICAL DATA: Recent stroke symptoms, followup exam EXAM: CT HEAD WITHOUT CONTRAST TECHNIQUE: Contiguous axial images were obtained from the base of the skull through the vertex without intravenous contrast. COMPARISON: 04/26/2016 FINDINGS: The bony calvarium is intact. The area of decreased attenuation seen previously in the left frontal lobe is not well appreciated on the current exam. No new areas of acute hemorrhage, acute infarction or space-occupying mass lesion are noted. Mild chronic white matter ischemic changes are again seen. Very mild atrophic changes are noted as well. IMPRESSION: Mild atrophic and ischemic changes. No acute infarct is identified. The previously seen abnormality is less well appreciated on the current exam. Electronically Signed By: Rony Bob M.D. On: 04/28/2016 09:01
--- NOTE | 2016-04-28 11:08 | PCM.DCS92 ---
- Final/Secondary Discharge Diagnosis (1) Transient global amnesia Acute G45.4 - TRANSIENT GLOBAL AMNESIA Present on Admission: Yes Comment: Apparently had confusion yesterday that has subsided today. Refused to take MRI today even with sedation by benzodiazepine. Given that will repeat her CT in a.m.. She did have some left frontal ischemic changes on her CT brain. She will take only Plavix and Eliquis. (2) Paroxysmal atrial fibrillation Acute I48.0 - PAROXYSMAL ATRIAL FIBRILLATION Present on Admission: Yes Comment: Discussed with Dr. Varma and patient as well as her daughter. The daughter requested that we use 1 of the newer agents, like Eliquis, that would not warrant the necessity of getting multiple blood tests done, such as Coumadin. For that reason Eliquis 5 mg p.o. twice daily started 04/27/2016 and stop full-dose Lovenox tonight. (3) DMII (diabetes mellitus, type 2) Chronic E11.9 - TYPE 2 DIABETES MELLITUS WITHOUT COMPLICATIONS Present on Admission: Yes with neurologic complications with polyneuropathy D P D without manager long term care use L C E11.42 - Type 2 diabetes mellitus with diabetic polyneuropathy Comment: Diabetic diet when eating, continue home oral diabetic medications if he is cleared for a diet. Add q.a.c. and HS blood sugar checks, as well as sliding scale insulin. Last hemoglobin A1c was 8.5. (4) HTN (hypertension) Acute I10 - ESSENTIAL (PRIMARY) HYPERTENSION Present on Admission: Yes essential hypertension Comment: Will reinstitute antihypertensive therapy she was taking at home. (5) Obesity (BMI 35.0-39.9 without comorbidity) Chronic E66.9 - OBESITY, UNSPECIFIED Present on Admission: Yes Comment: Dietary And exercise therapy is necessary for weight loss. Discharge Disposition: Home Discharge Condition: Improved Cognitive Discharge Status: Unimpaired Fuctional Discharge Status: Independent Physician Follow up/Referrals: Luis Alberto Villa MD [Primary Care Provider] - One Week Home Medications / New Prescriptions: New Apixaban [Eliquis] 5 mg PO Q12H #60 tablet Levothyroxine [Synthroid, Levoxyl] 150 mcg PO DAILY #30 tablet Continue Mometasone Furoate [Nasonex] 17 gm ELIS BID PRN PRN Reason: Nasal Congestion Cholecalciferol [Vitamin D3 (cholecalciferol)] 1,000 unit PO DAILY Duloxetine [Cymbalta] 30 mg PO DAILY Esomeprazole Mag Trihydrate [Nexium] 40 mg PO BID Telmisartan [Micardis] 80 mg PO DAILY Ezetimibe [Zetia] 10 mg PO DAILY Rosuvastatin [Crestor] 10 mg PO HS Gabapentin [Neurontin] 400 mg PO TID PRN PRN Reason: Pain Hydrocodone Bit/Acetaminophen [[place] 5-325 Tablet] 2 tabs PO Q6H PRN PRN Reason: Pain Liraglutide [Victoza 18 mg/3 ml Pen] 1.8 mg SQ DAILY Glimepiride [Amaryl] 2 mg PO DAILY Estradiol [Estrace] 2 gm PV .3 X PER WEEK Fexofenadine HCl [Dionne] 180 mg PO DAILY PRN PRN Reason: ALLERGIES Furosemide [Lasix] 20 mg PO DAILY PRN PRN Reason: Edema Polyethylene Glycol 3350 [Miralax] 17 gm PO DAILY PRN PRN Reason: Constipation Nitrofurantoin [Macrobid] 100 mg PO DAILY Amlodipine [Norvasc] 10 mg PO DAILY #30 tab Artificial Tears 2 drops OU BID #1 bottle Artificial Tears 2 drops OU Q4H PRN #1 bottle PRN Reason: Eye Dryness Carvedilol [Coreg] 3.125 mg PO BID #60 tablet Multivitamin [Multi-Day Vitamins] 1 each PO DAILY Cyanocobalamin (Vitamin B-12) [Vitamin B-12 (cyanocobalamin)] 3,000 mcg SL DAILY Melatonin/Pyridoxine [Melatonin 5 mg Tablet] 1 each PO HS Albuterol Sulfate [Proair Hfa] 2 puff INH Q4H PRN PRN Reason: Shortness Of Breath Docusate Sodium [Colace] 200 mg PO DAILY Mth/Me Blue/Sod Phos/Phen/Hyos [Uro-Mp Capsule] 1 each PO Q8H PRN PRN Reason: Dysuria Clopidogrel Bisulfate [Plavix] 75 mg PO DAILY #30 tablet Discontinued Levothyroxine [Synthroid, Levoxyl] 175 mcg PO DAILY Aspirin (Enteric Coated) [Halfprin] 81 mg PO DAILY Discharge Home Medication List Cholecalciferol [Vitamin D3 (cholecalciferol)] 1,000 unit PO DAILY 09/06/12 [ History Confirmed 04/27/16 Last Taken 04/26/16] Duloxetine [Cymbalta] 30 mg PO DAILY 09/06/12 [History Confirmed 04/27/16 Last Taken 04/26/16] Esomeprazole Mag Trihydrate [Nexium] 40 mg PO BID 09/06/12 [History Confirmed Last Taken 04/26/16] Ezetimibe [Zetia] 10 mg PO DAILY 09/06/12 [History Confirmed 04/27/16 Last Taken 04/26/16] Mometasone Furoate [Nasonex] 17 gm ELIS BID PRN 09/06/12 [History Confirmed 04/27 Last Taken 09/14/14] Telmisartan [Micardis] 80 mg PO DAILY 09/06/12 [History Confirmed 04/27/16 Last Taken 04/26/16] Gabapentin [Neurontin] 400 mg PO TID PRN 09/15/14 [History Confirmed 04/27/16 Last Taken 04/06/16 08:00] Hydrocodone Bit/Acetaminophen [[place] 5-325 Tablet] 2 tabs PO Q6H PRN 09/15/14 [ History Confirmed 04/27/16 Last Taken 04/26/16] Rosuvastatin [Crestor] 10 mg PO HS 09/15/14 [History Confirmed 04/27/16 Last Taken 04/26/16] Estradiol [Estrace] 2 gm PV .3 X PER WEEK 03/15/15 [History Confirmed 04/27/16 Last Taken Unknown] Fexofenadine HCl [Dionne] 180 mg PO DAILY PRN 03/15/15 [History Confirmed 04/27 Last Taken 04/06/16 08:40] Furosemide [Lasix] 20 mg PO DAILY PRN 03/15/15 [History Confirmed 04/27/16 Last Taken 03/14/15] Glimepiride [Amaryl] 2 mg PO DAILY 03/15/15 [History Confirmed 04/27/16 Last Taken 04/26/16] Liraglutide [Victoza 18 mg/3 ml Pen] 1.8 mg SQ DAILY 03/15/15 [History Confirmed 04/27/16 Last Taken 04/26/16] Nitrofurantoin [Macrobid] 100 mg PO DAILY 04/02/16 [History Confirmed 04/27/16 Last Taken 04/06/16 08:40] Polyethylene Glycol 3350 [Miralax] 17 gm PO DAILY PRN 04/02/16 [History Confirmed 04/27/16 Last Taken 04/03/16] Amlodipine [Norvasc] 10 mg PO DAILY #30 tab 04/06/16 [Rx Confirmed 04/27/16 Last Taken 04/26/16] Artificial Tears 2 drops OU BID #1 bottle 04/06/16 [Rx Confirmed 04/27/16 Last Taken 04/26/16] Artificial Tears 2 drops OU Q4H PRN #1 bottle 04/06/16 [Rx Confirmed 04/27/16 Last Taken 04/03/16 08:00] Carvedilol [Coreg] 3.125 mg PO BID #60 tablet 04/06/16 [Rx Confirmed 04/27/16 Last Taken 04/26/16] Albuterol Sulfate [Proair Hfa] 2 puff INH Q4H PRN 04/26/16 [History Confirmed Last Taken Unknown] Cyanocobalamin (Vitamin B-12) [Vitamin B-12 (cyanocobalamin)] 3,000 mcg SL DAILY 04/26/16 [History Confirmed 04/27/16 Last Taken 04/26/16] Docusate Sodium [Colace] 200 mg PO DAILY 04/26/16 [History Confirmed 04/27/16 Last Taken 04/26/16] Melatonin/Pyridoxine [Melatonin 5 mg Tablet] 1 each PO HS 04/26/16 [History Confirmed 04/27/16 Last Taken Unknown] Mth/Me Blue/Sod Phos/Phen/Hyos [Uro-Mp Capsule] 1 each PO Q8H PRN 04/26/16 [ History Confirmed 04/27/16 Last Taken Unknown] Multivitamin [Multi-Day Vitamins] 1 each PO DAILY 04/26/16 [History Confirmed Last Taken 04/26/16] Apixaban [Eliquis] 5 mg PO Q12H #60 tablet 04/28/16 [Rx Last Taken Unknown] Clopidogrel Bisulfate [Plavix] 75 mg PO DAILY #30 tablet 04/28/16 [Rx Last Taken Unknown] Levothyroxine [Synthroid, Levoxyl] 150 mcg PO DAILY #30 tablet 04/28/16 [Rx Last Taken Unknown] 04/28/16 05:05 04/28/16 05:05 Laboratory Results - last 24 hr 04/27/16 04/28/16 04/28/16 17:53 05:05 05:05 WBC 10.3 RBC 4.23 Hgb 12.7 Hct 38.9 MCV 92 MCH 30.1 MCHC 32.7 L RDW 15.4 H Plt Count 215 MPV 10.1 Sodium 135 L Potassium 4.5 Chloride 100 Carbon Dioxide 26 Anion Gap 14 BUN 26 H Creatinine 1.00 Estimated GFR (MDRD) 53 L Glucose 173 H POC Capillary Glucose 134 H Calculated Osmolality 269 L Calcium 9.2 04/28/16 05:19 WBC RBC Hgb Hct MCV MCH MCHC RDW Plt Count MPV Sodium Potassium Chloride Carbon Dioxide Anion Gap BUN Creatinine Estimated GFR (MDRD) Glucose POC Capillary Glucose 170 H Calculated Osmolality Calcium O2 Device: Room Air Diet at Discharge: Heart Healthy, Diabetic, 1800 Calorie Activity: As Tolerated Discontinue use of:: Alcohol, All Types of Tobacco - DC Summary Notes HPI/Notes: This is an 80-year-old female with a history of diabetes and hypertension who was being admitted to the [facility] due to frontal stroke. Per her family was at the bedside, she has been in her usual state of health the last several days, she is very active and plays bridge 3 times a week. However, since this morning she has been suddenly very confused, EMS was brought to her home and she continued to exhibit confusion, saying nonsensical things. Neurologically she is otherwise completely intact without any slurred speech, facial droop or extremity weakness or complaints of numbness or tingling. Evaluation in the emergency department revealed atrial fibrillation, which is a new diagnosis for this patient. She was also found to have abnormality on CT scan of the head, for which reason she is being admitted to the hospital for further CVA workup. Per the family, she has not had any chest pain, shortness of breath, nausea, vomiting, fevers, chills, recent falls or changes in medication. She does take pain medication due to her chronic pain, and family has some concern that she may be taking extra doses of her pain medication especially since she has been complaining of a headache for the last couple of days. Hospital Course Note:: Discharge summary on patient named RADHA VELASCO admitted to [facility] on 04/26/16 by Solo Denton MD. Date of discharge is 2016. She was admitted with transient global amnesia and CT of the brain showed ischemic changes in the left frontal lobe but no acute stroke. She refused to go down for a MRI of the brain because of claustrophobia even with medication. For this reason I repeated her CT this morning which was negative for acute stroke. Since she had atrial fib when she came in she is a good candidate for anticoagulation with her multiple medical problems including the diabetes hypertension so I discussed it with her and Dr. Varma. Dr. Varma recommended that she take Plavix but stop the aspirin. We all decided to give her Eliquis 5 mg twice daily for the rest of her life or until she stops it on her own. Compliance is 1 of my concerns about her. CC: Dr. Villa Code: [id number] (>30min.) - Physical Exam Vital Signs: Last Vital Signs Temp 97.9 F 04/28/16 07:36 Pulse 62 04/28/16 07:36 Resp 17 04/28/16 07:36 BP 144/73 04/28/16 07:36 Pulse Ox 95 04/28/16 07:36 Oxygen Pulse Oxygen Saturation 95 O2 Device Room Air Oxygen Flow Rate Fraction of Inspired Oxygen ( FIO2) Constitutional: Alert (Awake, Fully oriented, well appearing. No apparent distress) Oriented to: Person - HEENT Head: Normal (normocephalic,atraumatic, trachea midline) Eye: Normal (EOMI, Sclera white) Oropharynx: Normal (moist) Nose: No Symptoms Reported (without discharge or bleeding) - Respiratory/Cardiovascular Respiratory: Normal - CTA (Clear to auscultation bilaterally, no wheezing,rales or rhonchi. No use of accessory muscles) - GI Palpation: Normal (soft, non distended and nontender) - Musculoskeletal Extremities: Normal (normal tone, no cyanosis or edema) - Integumentary Lymphatics: Normal (No lymph node swelling or pain.) - Neurologic Mood Description: Normal (Fully oriented and appropiate affect)
[2016-04-28] MEDS: ARTIFICIAL TEARS OPH SOLN 15 ML OU SCH (11:28)
[2016-04-28] MEDS: Docusate Sodium 100 MG CAP PO SCH (11:28)
[2016-04-28 11:42] VITALS: BP 192/75; PULSE 73; TEMP 97.5
[2016-04-28] MEDS: APIXABAN 5 MG TABLET PO SCH (11:57)
[2016-04-28] MEDS ORDERED: VITAMINS, MULTIPLE CAP PO SCH (12:00)
[2016-04-28] MEDS ORDERED: CYANOCOBALAMIN (Vitamin B-12) 500 MCG TABLET PO SCH (12:00)
--- NOTE | 2016-04-28 13:43 | PCM.CARDCO ---
Consultation Date: 04/28/16 Requesting Physician: Bryson Adamson Allergy Physician: Daryl Varma Consult Reason: Stroke/TIA - History of Present Illness Patient is an 80 years old woman that I had a pleasure to meet couple years ago. The purpose of my evaluation last time in 2013 was atypical chest pain that she suffers from. That workup was negative for coronary artery disease. She does have significant risk factors for it namely diabetes hypertension dyslipidemia. She presented to the hospital with chief complaint of confusion lasted for less than 24 hours. She has complete amnesia of that episode. She is awake alert oriented x3 at the time of my interview. Her daughter is in the room and she is telling me that sometime she still have some difficulty finding words. But otherwise she seems to be in neurological intact. Interestingly 1st electrocardiogram that was done while she presented to the hospital show atrial fibrillation with relatively controlled ventricular rate. This is a new discovery this is the 1st documented episode of atrial fibrillation this lady. Her chads score is 3 that is her age hypertension and diabetes. Therefore, she needs to be anticoagulated. The purpose of my evaluation was to evaluate her atrial fibrillation and need for anticoagulation. She never had he still bleeding. She did fell down about 3 weeks ago, her symptom status of this episodes is unclear. Chief Complaint: Headache - Past Medical and Surgical History Cardiac History: Reports: Hypertension, Hypercholesterolemia Respiratory History: Reports: Asthma GI/ History: Reports: Renal Disease, Urinary Tract Infection Systemic History: Reports: Diabetes, Hyperthyroidism, Hypothyroidism. Denies: Cancer Musculoskeletal History: Reports: Osteoarthritis (lumbar) Psychological History: Reports: Depression. Denies: Anxiety, Alcoholism, Substance Use Disorder Neurological History: Denies: Cerebrovascular Accident Past Surgical History: Reports: Hysterectomy (partial), Tonsillectomy/ Adnoidectomy Allergies midazolam HCl [From Versed] Allergy (Severe, Verified 04/27/16 00:36) Confusion ethacrynic acid [From Edecrin] Allergy (Mild, Verified 04/27/16 00:36) Difficulty Breathing UNKNOWN morphine Allergy (Mild, Verified 04/27/16 00:36) Unknown/See Comments MOUTH SWELLING Sulfa (Sulfonamide Antibiotics) [Sulfa(Sulfonamide Antibiotics)] Allergy (Mild, Verified 04/27/16 00:36) Unknown/See Comments SOB adhesive tape Allergy (Verified 04/27/16 00:36) Unknown/See Comments SKIN IRRITATION Home Medications Cholecalciferol [Vitamin D3 (cholecalciferol)] 1,000 unit PO DAILY 09/06/12 Duloxetine [Cymbalta] 30 mg PO DAILY 09/06/12 Esomeprazole Mag Trihydrate [Nexium] 40 mg PO BID 09/06/12 Ezetimibe [Zetia] 10 mg PO DAILY 09/06/12 Mometasone Furoate [Nasonex] 17 gm ELIS BID PRN 09/06/12 Telmisartan [Micardis] 80 mg PO DAILY 09/06/12 Gabapentin [Neurontin] 400 mg PO TID PRN 09/15/14 Hydrocodone Bit/Acetaminophen [Crane 5-325 Tablet] 2 tabs PO Q6H PRN 09/15/14 Rosuvastatin [Crestor] 10 mg PO HS 09/15/14 Estradiol [Estrace] 2 gm PV .3 X PER WEEK 03/15/15 Fexofenadine HCl [Dionne] 180 mg PO DAILY PRN 03/15/15 Furosemide [Lasix] 20 mg PO DAILY PRN 03/15/15 Glimepiride [Amaryl] 2 mg PO DAILY 03/15/15 Liraglutide [Victoza 18 mg/3 ml Pen] 1.8 mg SQ DAILY 03/15/15 Nitrofurantoin [Macrobid] 100 mg PO DAILY 04/02/16 Polyethylene Glycol 3350 [Miralax] 17 gm PO DAILY PRN 04/02/16 Amlodipine [Norvasc] 10 mg PO DAILY #30 tab 04/06/16 Artificial Tears 2 drops OU BID #1 bottle 04/06/16 Artificial Tears 2 drops OU Q4H PRN #1 bottle 04/06/16 Carvedilol [Coreg] 3.125 mg PO BID #60 tablet 04/06/16 Albuterol Sulfate [Proair Hfa] 2 puff INH Q4H PRN 04/26/16 Cyanocobalamin (Vitamin B-12) [Vitamin B-12 (cyanocobalamin)] 3,000 mcg SL DAILY 04/26/16 Docusate Sodium [Colace] 200 mg PO DAILY 04/26/16 Melatonin/Pyridoxine [Melatonin 5 mg Tablet] 1 each PO HS 04/26/16 Mth/Me Blue/Sod Phos/Phen/Hyos [Uro-Mp Capsule] 1 each PO Q8H PRN 04/26/16 Multivitamin [Multi-Day Vitamins] 1 each PO DAILY 04/26/16 Apixaban [Eliquis] 5 mg PO Q12H #60 tablet 04/28/16 Clopidogrel Bisulfate [Plavix] 75 mg PO DAILY #30 tablet 04/28/16 Levothyroxine [Synthroid, Levoxyl] 150 mcg PO DAILY #30 tablet 04/28/16 - Social History Travel Outside of [place] in the Last 3 Months?: No Smoking Status: Never smoker Social History: Denies: Alcohol Use, Substance Use Disorder - Family History Reports: Diabetes (father), Cancer (mother colon), Cardiac Disorders (parents). Denies: Hypertension, Stroke Review of system negative except as described per history of present illness. - Physical Exam Constitutional: Alert (Awake, Fully oriented, well appearing. No apparent distress) Oriented to: Person Exam: Last Vital Signs Temp 97.5 F 04/28/16 11:41 Pulse 73 04/28/16 11:41 Resp 18 04/28/16 11:41 BP 192/75 H 04/28/16 11:41 Pulse Ox 96 04/28/16 11:41 Intake & Output 04/27/16 04/28/16 04/28/16 23:59 07:59 15:59 Intake Total 240 240 Balance 240 240 Patient's weight 117.571 kg 117.571 kg - HEENT Head: Normal (normocephalic,atraumatic, trachea midline) Eye: Normal (EOMI, Sclera white) Oropharynx: Normal (moist) Nose: No Symptoms Reported (without discharge or bleeding) - Respiratory/Cardiovascular Respiratory: Normal - CTA (Clear to auscultation bilaterally, no wheezing,rales or rhonchi. No use of accessory muscles) - GI Palpation: Normal (soft, non distended and nontender) - Musculoskeletal Extremities: Normal (normal tone, no cyanosis or edema) - Integumentary Lymphatics: Normal (No lymph node swelling or pain.) - Neurologic Mood Description: Normal (Fully oriented and appropiate affect) - Other Exam Other Exam Findings: General Appearance: Well developed. Well nourished. In no acute distress. Lungs: Chest was not overinflated. Clear to auscultation. Cardiovascular: Jugular Venous Distention: JVD not increased. Heart Rate And Rhythm: Normal. Heart Sounds: Normal. Murmurs: No murmurs were heard. Carotid Arteries: Carotid pulses were normal. No bruit in the carotid artery. Edema: Not present. Lower extremities pulses normal (including femoral popliteal and dorsalis pedis) . Musculoskeletal System: General/bilateral: No cyanosis of the fingers. Neurological: Oriented to time, place, and person. Nails: No clubbing of the fingernails. - Lab Results Laboratory Tests 04/26/16 04/26/16 04/26/16 19:39 19:45 20:00 WBC RBC Hgb Hct MCV MCH MCHC RDW Plt Count MPV Neut % (Auto) Lymph % (Auto) [place] % (Auto) Eos % (Auto) Baso % (Auto) Absolute Neuts (auto) Absolute Lymphs (auto) ESR PT INR APTT Sodium 135 L Potassium 4.3 Chloride 97 L Carbon Dioxide 25 Anion Gap 17 H BUN 31 H Creatinine 1.00 Estimated GFR (MDRD) 53 L Glucose 210 H POC Capillary Glucose Calculated Osmolality 273 Lactic Acid 1.0 Calcium 9.5 Total Bilirubin 0.7 AST 24 ALT 31 Alkaline Phosphatase 109 Creatine Kinase 22 L Troponin I < 0.01 Total Protein 8.3 H Albumin 4.4 Triglycerides Cholesterol LDL Cholesterol, Calc VLDL Cholesterol, Calc HDL Cholesterol Cholesterol/HDL Ratio TSH Urine Color Urine Clarity Urine pH Ur Specific [place] Urine Protein Urine Glucose (UA) Urine Ketones Urine Occult Blood Urine Nitrite Urine Bilirubin Urine Urobilinogen Ur Leukocyte Esterase Urine RBC Urine WBC Urine Bacteria Hyaline Casts Urine Mucus Urine Opiates Screen Ur Oxycodone Screen Urine Methadone Screen Ur Barbiturates Screen Ur Tricyclics Screen Ur Phencyclidine Scrn Ur Amphetamines Screen U Methamphetamines Scrn Urine MDMA Screen U Benzodiazepines Scrn Urine Cocaine Screen Ur THC Screen Blood Type Cancelled Antibody Screen Cancelled 04/26/16 04/26/16 04/26/16 20:00 20:00 20:38 WBC 15.3 H RBC 4.48 Hgb 13.6 Hct 40.8 MCV 91 MCH 30.3 MCHC 33.3 RDW 15.7 H Plt Count 289 MPV 10.2 Neut % (Auto) 83.0 H Lymph % (Auto) 9.2 L [place] % (Auto) 7.0 Eos % (Auto) 0.1 Baso % (Auto) 0.7 Absolute Neuts (auto) 12.70 H Absolute Lymphs (auto) 1.38 ESR PT 10.0 INR 1.0 APTT 21.2 L Sodium Potassium Chloride Carbon Dioxide Anion Gap BUN Creatinine Estimated GFR (MDRD) Glucose POC Capillary Glucose Calculated Osmolality Lactic Acid Calcium Total Bilirubin AST ALT Alkaline Phosphatase Creatine Kinase Troponin I Total Protein Albumin Triglycerides Cholesterol LDL Cholesterol, Calc VLDL Cholesterol, Calc HDL Cholesterol Cholesterol/HDL Ratio TSH Urine Color Urine Clarity Urine pH Ur Specific [place] Urine Protein Urine Glucose (UA) Urine Ketones Urine Occult Blood Urine Nitrite Urine Bilirubin Urine Urobilinogen Ur Leukocyte Esterase Urine RBC Urine WBC Urine Bacteria Hyaline Casts Urine Mucus Urine Opiates Screen *positive* H Ur Oxycodone Screen Neg Urine Methadone Screen Neg Ur Barbiturates Screen Neg Ur Tricyclics Screen Neg Ur Phencyclidine Scrn Neg Ur Amphetamines Screen Neg U Methamphetamines Scrn Neg Urine MDMA Screen Neg U Benzodiazepines Scrn Neg Urine Cocaine Screen Neg Ur THC Screen Neg Blood Type Antibody Screen 04/26/16 04/26/16 04/27/16 20:38 22:43 06:30 WBC RBC Hgb Hct MCV MCH MCHC RDW Plt Count MPV Neut % (Auto) Lymph % (Auto) [place] % (Auto) Eos % (Auto) Baso % (Auto) Absolute Neuts (auto) Absolute Lymphs (auto) ESR PT INR APTT Sodium Potassium Chloride Carbon Dioxide Anion Gap BUN Creatinine Estimated GFR (MDRD) Glucose POC Capillary Glucose Calculated Osmolality Lactic Acid Calcium Total Bilirubin AST ALT Alkaline Phosphatase Creatine Kinase 20 L Troponin I < 0.01 Total Protein Albumin Triglycerides Cholesterol LDL Cholesterol, Calc VLDL Cholesterol, Calc HDL Cholesterol Cholesterol/HDL Ratio TSH 0.18 L Urine Color Yellow Urine Clarity Sl cldy Urine pH 6.0 Ur Specific [place] 1.015 Urine Protein 1+ H Urine Glucose (UA) 2+ H Urine Ketones Neg Urine Occult Blood Neg Urine Nitrite Neg Urine Bilirubin Neg Urine Urobilinogen 0.2 Ur Leukocyte Esterase Neg Urine RBC 0-2 Urine WBC 0-2 Urine Bacteria Few Hyaline Casts 2-5 H Urine Mucus Occ Urine Opiates Screen Ur Oxycodone Screen Urine Methadone Screen Ur Barbiturates Screen Ur Tricyclics Screen Ur Phencyclidine Scrn Ur Amphetamines Screen U Methamphetamines Scrn Urine MDMA Screen U Benzodiazepines Scrn Urine Cocaine Screen Ur THC Screen Blood Type Antibody Screen 04/27/16 04/27/16 04/27/16 06:30 06:30 06:30 WBC 12.8 H RBC 4.26 Hgb 12.8 Hct 38.8 MCV 91 MCH 30.0 MCHC 32.9 L RDW 15.6 H Plt Count 244 MPV 9.8 Neut % (Auto) Lymph % (Auto) [place] % (Auto) Eos % (Auto) Baso % (Auto) Absolute Neuts (auto) Absolute Lymphs (auto) ESR 65 H PT INR APTT Sodium 135 L Potassium 4.7 Chloride 98 Carbon Dioxide 27 Anion Gap 15 BUN 25 H Creatinine 0.80 Estimated GFR (MDRD) > 60 Glucose 167 H POC Capillary Glucose Calculated Osmolality 268 L Lactic Acid Calcium 9.2 Total Bilirubin AST ALT Alkaline Phosphatase Creatine Kinase Troponin I Total Protein Albumin Triglycerides 159 H Cholesterol 160 LDL Cholesterol, Calc 62.2 VLDL Cholesterol, Calc 31.8 HDL Cholesterol 66.0 Cholesterol/HDL Ratio 2.4 TSH Urine Color Urine Clarity Urine pH Ur Specific [place] Urine Protein Urine Glucose (UA) Urine Ketones Urine Occult Blood Urine Nitrite Urine Bilirubin Urine Urobilinogen Ur Leukocyte Esterase Urine RBC Urine WBC Urine Bacteria Hyaline Casts Urine Mucus Urine Opiates Screen Ur Oxycodone Screen Urine Methadone Screen Ur Barbiturates Screen Ur Tricyclics Screen Ur Phencyclidine Scrn Ur Amphetamines Screen U Methamphetamines Scrn Urine MDMA Screen U Benzodiazepines Scrn Urine Cocaine Screen Ur THC Screen Blood Type Antibody Screen 04/27/16 04/28/16 04/28/16 17:53 05:05 05:05 WBC 10.3 RBC 4.23 Hgb 12.7 Hct 38.9 MCV 92 MCH 30.1 MCHC 32.7 L RDW 15.4 H Plt Count 215 MPV 10.1 Neut % (Auto) Lymph % (Auto) [place] % (Auto) Eos % (Auto) Baso % (Auto) Absolute Neuts (auto) Absolute Lymphs (auto) ESR PT INR APTT Sodium 135 L Potassium 4.5 Chloride 100 Carbon Dioxide 26 Anion Gap 14 BUN 26 H Creatinine 1.00 Estimated GFR (MDRD) 53 L Glucose 173 H POC Capillary Glucose 134 H Calculated Osmolality 269 L Lactic Acid Calcium 9.2 Total Bilirubin AST ALT Alkaline Phosphatase Creatine Kinase Troponin I Total Protein Albumin Triglycerides Cholesterol LDL Cholesterol, Calc VLDL Cholesterol, Calc HDL Cholesterol Cholesterol/HDL Ratio TSH Urine Color Urine Clarity Urine pH Ur Specific [place] Urine Protein Urine Glucose (UA) Urine Ketones Urine Occult Blood Urine Nitrite Urine Bilirubin Urine Urobilinogen Ur Leukocyte Esterase Urine RBC Urine WBC Urine Bacteria Hyaline Casts Urine Mucus Urine Opiates Screen Ur Oxycodone Screen Urine Methadone Screen Ur Barbiturates Screen Ur Tricyclics Screen Ur Phencyclidine Scrn Ur Amphetamines Screen U Methamphetamines Scrn Urine MDMA Screen U Benzodiazepines Scrn Urine Cocaine Screen Ur THC Screen Blood Type Antibody Screen 04/28/16 05:19 WBC RBC Hgb Hct MCV MCH MCHC RDW Plt Count MPV Neut % (Auto) Lymph % (Auto) [place] % (Auto) Eos % (Auto) Baso % (Auto) Absolute Neuts (auto) Absolute Lymphs (auto) ESR PT INR APTT Sodium Potassium Chloride Carbon Dioxide Anion Gap BUN Creatinine Estimated GFR (MDRD) Glucose POC Capillary Glucose 170 H Calculated Osmolality Lactic Acid Calcium Total Bilirubin AST ALT Alkaline Phosphatase Creatine Kinase Troponin I Total Protein Albumin Triglycerides Cholesterol LDL Cholesterol, Calc VLDL Cholesterol, Calc HDL Cholesterol Cholesterol/HDL Ratio TSH Urine Color Urine Clarity Urine pH Ur Specific [place] Urine Protein Urine Glucose (UA) Urine Ketones Urine Occult Blood Urine Nitrite Urine Bilirubin Urine Urobilinogen Ur Leukocyte Esterase Urine RBC Urine WBC Urine Bacteria Hyaline Casts Urine Mucus Urine Opiates Screen Ur Oxycodone Screen Urine Methadone Screen Ur Barbiturates Screen Ur Tricyclics Screen Ur Phencyclidine Scrn Ur Amphetamines Screen U Methamphetamines Scrn Urine MDMA Screen U Benzodiazepines Scrn Urine Cocaine Screen Ur THC Screen Blood Type Antibody Screen - Assessment/Plan (1) New onset a-fib I48.91 - UNSPECIFIED ATRIAL FIBRILLATION Acute Present on Admission: Yes Comment: This is a 1st documented episode of atrial fibrillation. Her chads score is 3 if we consider the event that brought her to hospital as TIA chads score will be 5, regardless, she needs to be anticoagulated. I thing Eliquis 5 mg twice daily will be reasonable choice. I think we can stop her aspirin. There was no recent coronary events. However because of peripheral vascular disease that is not critical by significant I would continue with Plavix. Will follow up her CBC. We did have discussion about potential risk of falls. She join the rehab to buildup strength in her lower extremities hopefully that will help. I do not think does not a role for antiarrhythmic medication at this point. Her rate was not excessive while she was in atrial fibrillation. Therefore will continue rest of her medications (2) HTN (hypertension) I10 - ESSENTIAL (PRIMARY) HYPERTENSION Chronic Present on Admission: Yes essential hypertension Comment: Blood pressure is relatively well controlled all medications which I will continue. (3) Transient global amnesia G45.4 - TRANSIENT GLOBAL AMNESIA Acute Present on Admission: Yes Comment: This is completely reversed. Obviously she does not have recollection of any of those events. Suspicion is that it may be related to multiple pain medication she used. Regardless situation is somewhat unclear luckily she recover from this almost completely. (4) DMII (diabetes mellitus, type 2) E11.9 - TYPE 2 DIABETES MELLITUS WITHOUT COMPLICATIONS Chronic with neurologic complications with polyneuropathy D P D without chcf use L C E11.42 - Type 2 diabetes mellitus with diabetic polyneuropathy Comment: That being addressed by primary care physician.
== END 2016-04-28 12:47 | disposition home or self-care (01) | DRG 72 ==
LOC: ED 19:14 → EDINP 22:18 → PCU 04-27 10:36
PROVIDERS: ADMIT Internal Medicine; ATTEND Internal Medicine
DX: G45.4 Transient global amnesia (principal); E11.42 Type 2 diabetes mellitus with diabetic polyneuropathy; I48.91 Unspecified atrial fibrillation; I10 Essential (primary) hypertension; I73.9 Peripheral vascular disease, unspecified; E78.5 Hyperlipidemia, unspecified; J45.909 Unspecified asthma, uncomplicated; Z79.82 Long term (current) use of aspirin; Z79.84 Long term (current) use of oral hypoglycemic drugs; Z87.891 Personal history of nicotine dependence; G89.29 Other chronic pain; E66.9 Obesity, unspecified; Z68.39 Body mass index [BMI] 39.0-39.9, adult; Z79.899 Other long term (current) drug therapy; Z53.29 Procedure and treatment not carried out because of patient's decision for other reasons; F40.240 Claustrophobia
CPT/HCPCS: 36415; 70450; 71010; 80048; 80053; 80061; 80307; 81001; 82550; 82962; 83605; 84443; 84484; 85025; 85027; 85610; 85651; 85730; 87040; 93005; 93306; 93880; 96361; 96372; 96374; 97161; 97165; 99285; J1650; J2060; J3490; Q9957